=== PATIENT | female | born 1985 | race Caucasian/White ===

== ENCOUNTER 2022-05-13 16:33 | Outpatient (CLI) | payer OTHER, SELFPAY ==
[2022-05-13 18:26] LABS: Hepatitis B Surface Antigen Negative (Negative)
[2022-05-13 18:33] LABS: HIV 1/2 Ab P24 Ag Result Negative (Negative)
[2022-05-14 16:00] LABS: Rapid Plasma Reagin Non-Reactive (NonReactive)
== END 2022-05-13 16:34 | disposition home or self-care (01) ==
LOC: ANHLAB 16:40
DX: E03.8 Other specified hypothyroidism (principal)
CPT/HCPCS: 36415; 84443; 86592; 86703; 87340; 87491; 87591; G0432

== ENCOUNTER 2023-06-27 10:38 | Outpatient (CLI) | payer OTHER, SELFPAY | END 2023-06-27 10:39 | disposition home or self-care (01) | DX: E03.8 Other specified hypothyroidism (principal) | CPT/HCPCS: 36415; 84443 ==

== ENCOUNTER 2024-10-18 15:15 | Outpatient (CLI) | payer OTHER, SELFPAY ==
--- OUTSIDE RECORDS SUMMARY | 2024-10-18 15:22 | XMS_ITS | Encounter Summary ---
Author Organization [facility] Address [address] [place] [address] Care Team Providers Care Lace Machine Operator Name Role Phone Rhonda Oro MD Primary Care Provider [phone] Encounter Details Date Type Department Care Team (Late Contact Info) Description 11/09/2001 Outpatient [facility] Family Therapy [address] [place] [address] Lorenza Brody Social History Tobacco Use Types Packs/Day Years Used Date Smoking Tobacco: Never Assessed Comments Unknown Sex and Gender Information Value Date Recorded Sex Assigned at Not on file Legal Sex Female 4:40 AM RECREATION THERAPY AIDE Gender Identity Not on file Sexual Orientation Not on file documented as of this encounter Plan of Treatment Upcoming Encounters Date Type Department Care Team (Late Contact Info) Description 05/05/2025 4:20 PM RECREATION THERAPY AIDE Appointment [facility] Medicine Ronda Kieran [address] [facility] [address] [place] [address] [place] [address] [facility] [address] [place] [address] documented as of this encounter Visit Diagnoses Not on filedocumented in this encounter Additional Health Concerns Infection Onset Date Last Indicated Resolved Time R/O COVID-19 12/06/2019 12/06/2019 12/08/2019 4:01 AM CDT R/O COVID-19 05/29/2020 05/29/2020 05/30/2020 1:34 AM RECREATION THERAPY AIDE COVID-19 05/29/2020 05/29/2020 06/28/2020 1:17 AM RECREATION THERAPY AIDE documented as of this encounter Care Teams Lace Machine Operator Relationship Specialty [place] [address] [address] PCP - General Family Practice 05/07/17 documented as of this encounter
--- OUTSIDE RECORDS SUMMARY | 2024-10-18 15:22 | XMS_ITS | Encounter Summary ---
Author Organization [facility] Address [address] [place] [address] Care Team Providers Care Counter Professional Name Role Phone Rhonda Oro MD Primary Care Provider [phone] Encounter Details Date Type Department Care Team (Late st Contact Info) Description 02/27/2007 Orders Only [facility] Family Medicine [facility] [address] [facility] [address] [place] [address] Tamie Leo MD NO ADDRESS ON FILE Social History Tobacco Use Types Packs/Day Years Used Date Smoking Tobacco: Never Assessed Comments Unknown Sex and Gender Information Value Date Recorded Sex Assigned at Not on file Legal Sex Female 4:40 AM FINANCIAL SYSTEMS DIRECTOR Gender Identity Not on file Sexual Orientation Not on file documented as of this encounter Progress Notes * Tamie Leo MD - 10/16/2007 7:04 PM CDT NURSE NAME: Nadia Fernandez BLOOD PRESSURE: 102/64. Right Arm Sitting PULSE: 71. Right Radial, Regular WEIGHT: 112lbs. ALLERGIES: Allergies are as listed. TOBACCO USE: Patient does not currently use tobacco. CHIEF COMPLAINT Here for follow up evaluation. est/ sjl HISTORY: HISTORY: 078.19-WART persistent wart both thumbs and index fingers. one is medium size, others tiny, barely detectable. ready to try liq N2 300.00-ANXIETY states she is better and decided not to increase medication. getting records sent tome. using relaxation techniques 706.1-ACNE(COMEDONE) continues to flare w/ painful cystic lesions. father still on acne meds in his50's. thinks she did best on septra previously. no abx for almost 2 years. CURRENT MEDICATION LIST: CITALOPRAM HYDROBROMIDE ORAL TABLET 20 MG, 1 Every Day ORTHO TRI-CYCLEN (28) ORAL TABLET 0.035 MG, 1 Every Day CURRENT ALLERGY LIST: ERYTHROMYCIN PCN ROS: SKIN/BREAST/CHEST: See HISTORY OF PRESENT ILLNESS. : . vaginal itching & d/c like prior episode that responded to diflucan PSYCHIATRIC: See HISTORY OF PRESENT ILLNESS. PHYSICAL EXAMINATION: CONSTITUTIONAL: GENERAL APPEARANCE: Healthy appearing patient in no distress. SKIN: RASH/LESION #1 LOCATION: L thumb w/ 3-4mm wart + 1mm wart. R thumb and both index fingers w/ 1-2 mm warts BIOPSY/LESION: Liquid nitrogen cryotherapy was recommended. The procedure, including risks and potential complications, such as infection, scarring, blistering and hypopigmentation was explained. Thepatient understood and wished to proceed with treatment. The lesion was treated with liquid nitrogen resulting in freezing of the entire lesion and 1-2 mm of surrounding skin. RASH/LESION #2 LOCATION: mild inflamm. acne face. one resolving cystic lesion chin PSYCHIATRIC: Judgment appropriate. Oriented. Normal memory. Mood and affect appropriate. ASSESSMENT/PLAN: 078.19-WART ASSESSMENT: hopefully last rx LAB ORDERS: Order number: [id number] Test Ordered: DESTRUCTION BENIGN LESIONS UP TO 14 [id number] 300.00-ANXIETY ASSESSMENT: stable. ok to continue current meds. get records 706.1-ACNE(COMEDONE) ASSESSMENT: Will start medication for better control. warned re: photosensitivity and rare risk of bone marrow effects. reduce to QD if improved. MEDICATIONS: SEPTRA DS ORAL TABLET 800-160 MG, 1 Two Times A Day, 60 Dispensed, 2 Fills, status: NEW PRESCRIPTION, 02/27/2007. 616.10-VULVOVAGINITIS MEDICATIONS: DIFLUCAN ORAL TABLET 150 MG, 1 tablet now for yeast infection, 1 Dispensed, status: NEW PRESCRIPTION, 02/27/2007. RETURN VISIT: Instructed to call if not improving. Electronically Signed by: Tamie Leo MD on Tuesday, February 27, 2007 documented in this encounter Plan of Treatment Upcoming Encounters Date Type Department Care Team (Late st Contact Info) Description 05/05/2025 4:20 PM FINANCIAL SYSTEMS DIRECTOR Appointment [facility] Medicine Ronda Alcaraz [address] [facility] [address] [place] [address] [place] [address] [facility] [address] [place] [address] documented as of this encounter Visit Diagnoses Not on filedocumented in this encounter Additional Health Concerns Infection Onset Date Last Indicated Resolved Time R/O COVID-19 12/06/2019 12/06/2019 12/08/2019 4:01 AM CDT R/O COVID-19 05/29/2020 05/29/2020 05/30/2020 1:34 AM FINANCIAL SYSTEMS DIRECTOR COVID-19 05/29/2020 05/29/2020 06/28/2020 1:17 AM FINANCIAL SYSTEMS DIRECTOR documented as of this encounter Care Teams Counter Professional Relationship Specialty [place] [address] [facility] [address] [place] [address] PCP - General Family Practice 05/07/17 documented as of this encounter
--- OUTSIDE RECORDS SUMMARY | 2024-10-18 15:22 | XMS_ITS | Encounter Summary ---
Author Organization [facility] Address [address] [place] [address] Care Team Providers Care Master Ship Name Role Phone Rhonda Oro MD Primary Care Provider [phone] Encounter Details Date Type Department Care Team (Late st Contact Info) Description 10/15/2002 Outpatient Historical [facility] Medicine Ronda Kieran [address] [facility] [facility] [address] [place] [address] Tamie Leo MD NO ADDRESS ON FILE Social History Tobacco Use Types Packs/Day Years Used Date Smoking Tobacco: Never Assessed Comments Unknown Sex and Gender Information Value Date Recorded Sex Assigned at Not on file Legal Sex Female 4:40 AM IN HOME SALES CONSULTANT Gender Identity Not on file Sexual Orientation Not on file documented as of this encounter Plan of Treatment Upcoming Encounters Date Type Department Care Team (Late st Contact Info) Description 05/05/2025 4:20 PM IN HOME SALES CONSULTANT Appointment [facility] [place] Kieran [address] [address] [facility] [address] [place] [address] [place] [address] [address] [facility] [address] [place] [address] documented as of this encounter Visit Diagnoses Not on filedocumented in this encounter Additional Health Concerns Infection Onset Date Last Indicated Resolved Time R/O COVID-19 12/06/2019 12/06/2019 12/08/2019 4:01 AM CDT R/O COVID-19 05/29/2020 05/29/2020 05/30/2020 1:34 AM IN HOME SALES CONSULTANT COVID-19 05/29/2020 05/29/2020 06/28/2020 1:17 AM IN HOME SALES CONSULTANT documented as of this encounter Care Teams Master Ship Relationship Specialty [place] [address] [address] PCP - General Family Practice 05/07/17 documented as of this encounter
--- OUTSIDE RECORDS SUMMARY | 2024-10-18 15:22 | XMS_ITS | Encounter Summary ---
Author Organization [facility] Address [address] [place] [address] Care Team Providers Care Settlement Agent Name Role Phone Rhonda Oro MD Primary Care Provider [phone] Encounter Details Date Type Department Care Team (Latest Contact Info) Description 12/23/2003 Outpatient Historical [facility] Tamie Alexander MD NO ADDRESS ON FILE DIZZINESS AND GIDDINESS (Primary Dx) Social History Tobacco Use Types Packs/Day Years Used Date Smoking Tobacco: Never Assessed Comments Unknown Sex and Gender Information Value Date Recorded Sex Assigned at Not on file Legal Sex Female 4:40 AM DIGESTER OPERATOR Gender Identity Not on file Sexual Orientation Not on file documented as of this encounter Plan of Treatment Upcoming Encounters Date Type Department Care Team (Late st Contact Info) Description 05/05/2025 4:20 PM DIGESTER OPERATOR Appointment [facility] Medicine Ronda Alcaraz [address] [facility] [address] [place] [address] [place] [address] [facility] [address] [place] [address] documented as of this encounter Visit Diagnoses Diagnosis Dizziness and giddiness- Primary documented in this encounter Additional Health Concerns Infection Onset Date Last Indicated Resolved Time R/O COVID-19 12/06/2019 12/06/2019 12/08/2019 4:01 AM CDT R/O COVID-19 05/29/2020 05/29/2020 05/30/2020 1:34 AM DIGESTER OPERATOR COVID-19 05/29/2020 05/29/2020 06/28/2020 1:17 AM DIGESTER OPERATOR documented as of this encounter Care Teams Settlement Agent Relationship Specialty [place] [address] [address] PCP - General Family Practice 05/07/17 documented as of this encounter
--- OUTSIDE RECORDS SUMMARY | 2024-10-18 15:22 | XMS_ITS | Encounter Summary ---
Author Organization [facility] Address [address] [place] [address] Care Team Providers Care Hog Handler Name Role Phone Rhonda Oro MD Primary Care Provider [phone] Encounter Details Date Type Department Care Team (Late st Contact Info) Description 03/13/2004 Outpatient Historical [facility] Medicine Ronda Kieran [address] [facility] [address] [place] [address] Tamie Leo MD NO ADDRESS ON FILE Social History Tobacco Use Types Packs/Day Years Used Date Smoking Tobacco: Never Assessed Comments Unknown Sex and Gender Information Value Date Recorded Sex Assigned at Not on file Legal Sex Female 4:40 AM AUTOMOBILE DAMAGE APPRAISER Gender Identity Not on file Sexual Orientation Not on file documented as of this encounter Plan of Treatment Upcoming Encounters Date Type Department Care Team (Late st Contact Info) Description 05/05/2025 4:20 PM AUTOMOBILE DAMAGE APPRAISER Appointment [facility] [place] Kieran [address] [facility] [facility] [address] [place] [address] [place] [address] [employer] [address] [address] documented as of this encounter Visit Diagnoses Not on filedocumented in this encounter Additional Health Concerns Infection Onset Date Last Indicated Resolved Time R/O COVID-19 12/06/2019 12/06/2019 12/08/2019 4:01 AM CDT R/O COVID-19 05/29/2020 05/29/2020 05/30/2020 1:34 AM AUTOMOBILE DAMAGE APPRAISER COVID-19 05/29/2020 05/29/2020 06/28/2020 1:17 AM AUTOMOBILE DAMAGE APPRAISER documented as of this encounter Care Teams Hog Handler Relationship Specialty [place] [address] [address] PCP - General Family Practice 05/07/17 documented as of this encounter
--- OUTSIDE RECORDS SUMMARY | 2024-10-18 15:22 | XMS_ITS | Encounter Summary ---
Author Organization [facility] Address [address] [place] [address] Care Team Providers Care Administrative Tech Name Role Phone Rhonda Oro MD Primary Care Provider [phone] Encounter Details Date Type Department Care Team (Late Contact Info) Description 10/12/2002 Outpatient Historical [facility] Medicine Ronda Kieran [address] [facility] [address] [place] [address] [place] [address] [employer] [facility] [employer] [place] [address] Social History Tobacco Use Types Packs/Day Years Used Date Smoking Tobacco: Never Assessed Comments Unknown Sex and Gender Information Value Date Recorded Sex Assigned at Not on file Legal Sex Female 4:40 AM VENEER TAPING MACHINE OPERATOR Gender Identity Not on file Sexual Orientation Not on file documented as of this encounter Plan of Treatment Upcoming Encounters Date Type Department Care Team (Late Contact Info) Description 05/05/2025 4:20 PM VENEER TAPING MACHINE OPERATOR Appointment [facility] Medicine Ronda Kieran [address] [facility] [address] [place] [address] [place] [address] [employer] [address] [place] [address] documented as of this encounter Visit Diagnoses Not on filedocumented in this encounter Additional Health Concerns Infection Onset Date Last Indicated Resolved Time R/O COVID-19 12/06/2019 12/06/2019 12/08/2019 4:01 AM CDT R/O COVID-19 05/29/2020 05/29/2020 05/30/2020 1:34 AM VENEER TAPING MACHINE OPERATOR COVID-19 05/29/2020 05/29/2020 06/28/2020 1:17 AM VENEER TAPING MACHINE OPERATOR documented as of this encounter Care Teams Administrative Tech Relationship Specialty [place] [address] [phone] PCP - General Family Practice 05/07/17 documented as of this encounter
--- OUTSIDE RECORDS SUMMARY | 2024-10-18 15:22 | XMS_ITS | Encounter Summary ---
Author Organization [facility] Address [address] [place] [address] Care Team Providers Care Logging Crew Foreman Name Role Phone Rhonda Oro MD Primary Care Provider [phone] Encounter Details Date Type Department Care Team (Latest Contact Info) Description 02/01/2006 Outpatient Historical [facility] Jorge Yang MD [address] [facility] [address] [place] [address] Teetee Crowell, [address] [facility] [facility] [address] [place] [address] Delayed and Secondary Hemorrhage, (Primary Dx) Social History Tobacco Use Types Packs/Day Years Used Date Smoking Tobacco: Never Assessed Comments Unknown Sex and Gender Information Value Date Recorded Sex Assigned at Not on file Legal Sex Female 4:40 AM E M ASSEMBLER Gender Identity Not on file Sexual Orientation Not on file documented as of this encounter Plan of Treatment Upcoming Encounters Date Type Department Care Team (Late st Contact Info) Description 05/05/2025 4:20 PM E M ASSEMBLER Appointment [facility] Family Medicine Ronda Alcaraz [address] [facility] [address] [place] [address] [place] [address] [facility] [address] [place] [address] documented as of this encounter Procedures Procedure Name Priority Date/Time Associated Diagnosis Comments CBC WITH DIFFERENTIAL Routine 02/02/2006 6:05 AM CDT CBC WITH DIFFERENTIAL Routine 02/02/2006 6:05 AM CDT BASIC METABOLIC PANEL Routine 02/02/2006 6:05 AM CDT POC GLUCOSE Routine 02/01/2006 8:58 PM CDT PT AND APTT Routine 02/01/2006 6:05 PM CDT CBC WITH DIFFERENTIAL Routine 02/01/2006 6:04 PM CDT CBC WITH DIFFERENTIAL Routine 02/01/2006 6:04 PM CDT documented in this encounter Results * CBC WITH DIFFERENTIAL (02/02/2006 6:05 AM CDT) Pathologist [facility] NEUTROPHILS 49 45 - 70 % INTERFAC E SYSTEM LYMPHOCYTES 39 16 - 45 % INTERFAC E SYSTEM MONOCYTES 6 3 - 13 % INTERFACE SYSTEM EOSINOPHILS 6 0 - 7 % INTERFAC E SYSTEM BASOPHILS 0 0 - 2 % INTERFACE SYSTEM NEUTROPHIL ABSOLUTE 2.42 1.90 - 7.00 K/uL INTERFACE SYSTEM LYMPHOCYTE ABSOLUTE 1.95 0.70 - 4.50 K/uL INTERFACE SYSTEM MONOCYTE ABSOLUTE 0.30 0.10 - 1.30 K/uL INTERFACE SYSTEM EOSINOPHIL ABSOLUTE 0.30 0.00 - 0.70 K/uL INTERFACE SYSTEM BASOPHILS ABSOLUTE 0.02 0.00 - 0.20 K/uL INTERFACE SYSTEM 02/02/2006 6:05 AM CDT us Franko Cho MD HEMATOLOGY ORDERABLES Final Result INTERFACE SYSTEM Refer to clinic/hospital department * (ABNORMAL) CBC WITH DIFFERENTIAL (02/02/2006 6:05 AM CDT) Pathologist [facility] WBC 5.0 4.0 - 9.8 K/uL INTERFACE SYSTEM RBC 3.33(L) 3.90 - 4.90 M/uL INTERFACE SYSTEM HEMOGLOBIN 10.3(L) 11.8 - 14.8 g/dL INTERFACE SYSTEM HEMATOCRIT 29.7(L) 35.5 - 44.0 % INTERFACE SYSTEM MCV 89.2 82.0 - 99.0 fL INTERFACE SYSTEM MCH 30.9 27.2 - 32.6 pg INTERFACE SYSTEM MCHC 34.7 31.5 - 35.5 % INTERFACE SYSTEM RDW 12.9 11.5 - 14.5 % INTERFACE SYSTEM RDW-STDEV 41.6 37.1 - 48.7 fL INTERFACE SYSTEM PLATELETS 182 140 - 350 K/uL INTERFACE SYSTEM MPV 10.0 9.3 - 12.4 fL INTERFACE SYSTEM 02/02/2006 6:05 AM CDT Franko Cho MD HEMATOLOGY ORDERABLES Final Result Performing Organization Address [facility] Phone Number INTERFACE SYSTEM Refer to clinic/hospital department * (ABNORMAL) BASIC METABOLIC PANEL (02/02/2006 6:05 AM CDT) GLUCOSE 106(H) 65 - 99 mg/dL INTERFACE SYSTEM CREATININE 0.9 0.4 - 1.2 mg/dL INTERFACE SYSTEM CALCIUM 7.7(L) 8.6 - 10.2 mg/dL INTERFACE SYSTEM BUN 6 6 - 20 mg/dL INTERFACE SYSTEM SODIUM 141 135 - 145 mmol/L INTERFACE SYSTEM POTASSIUM 3.8 3.5 - 4.9 mmol/L INTERFACE SYSTEM CHLORIDE 112(H) 96 - 108 mmol/L INTERFACE SYSTEM CO2 23 22 - 30 mmol/L INTERFACE SYSTEM 02/02/2006 6:05 AM CDT Franko Cho MD CHEMISTRY ORDERABLES F inal Result Performing Organization Address [facility] de Phone Number INTERFACE SYSTEM Refer to clinic/hospital department * POC GLUCOSE (02/01/2006 8:58 PM CDT) GLUCOSE POC 79 65 - 109 mg/dL INTERFACE SYSTEM 02/01/2006 8:58 PM CDT Teetee Crowell DO POINT OF CARE TESTING Final Re sult Performing Organization Address [facility] de Phone Number INTERFACE SYSTEM Refer to clinic/hospital department * PT AND APTT (02/01/2006 6:05 PM CDT) Pathologist [facility] PROTIME 15.0 12.7 - 15.1 Seconds INTERFACE SYSTEM INR 1.1 0.9 - 1.1 INTERFACE SYSTEM Comment: INR Therapeutic Range: Adult: 2.0 - 3.0 for pulmonary embolism or prophylaxis against venous thrombosis or systemic embolization. 2.0 - 3.0 for patients with tissue heart valves. 2.5 - 3.5 for patients with mechanical heart valves or post ID. Pediatric (12 years and under): 1.5 - 3.0 Although the target range in children is not well established , INR values of 1.5 - 3.0 are recommended for most patients. Higher values have been used in children with prosthetic cardiac valves and hereditary clotting disorders. (<3 days) therapeutic ranges have not been established. PTT 30.9 24.4 - 36.4 Seconds INTERFACE SYSTEM Comment: PTT Therapeutic Range: Heparin Level PTT (seconds) <0.10 units/mL <53 0.10 - 0.30 units/mL 53 - 67 0.30 - 0.70 units/mL* 67 - 95* 0.70 - 1.00 units/mL 95 - 116 *corresponds to therapeutic range for unfractionated heparin 02/01/2006 6:05 PM CDT us Franko Cho MD HEMATOLOGY ORDERABLES Final Result INTERFACE SYSTEM Refer to clinic/hospital department * (ABNORMAL) CBC WITH DIFFERENTIAL (02/01/2006 6:04 PM CDT) Pathologist [facility] NEUTROPHILS 43(L) 45 - 70 % INTERFAC E SYSTEM LYMPHOCYTES 43 16 - 45 % INTERFAC E SYSTEM MONOCYTES 6 3 - 13 % INTERFACE SYSTEM EOSINOPHILS 8(H) 0 - 7 % INTERFAC E SYSTEM BASOPHILS 1 0 - 2 % INTERFACE SYSTEM NEUTROPHIL ABSOLUTE 2.37 1.90 - 7.00 K/uL INTERFACE SYSTEM LYMPHOCYTE ABSOLUTE 2.36 0.70 - 4.50 K/uL INTERFACE SYSTEM MONOCYTE ABSOLUTE 0.34 0.10 - 1.30 K/uL INTERFACE SYSTEM EOSINOPHIL ABSOLUTE 0.43 0.00 - 0.70 K/uL INTERFACE SYSTEM BASOPHILS ABSOLUTE 0.03 0.00 - 0.20 K/uL INTERFACE SYSTEM 02/01/2006 6:04 PM CDT Franko Cho MD HEMATOLOGY ORDERABLES Final Result Performing Organization Address [facility] Phone Number INTERFACE SYSTEM Refer to clinic/hospital department * CBC WITH DIFFERENTIAL (02/01/2006 6:04 PM CDT) WBC 5.5 4.0 - 9.8 K/uL INTERFACE SYSTEM RBC 4.41 3.90 - 4.90 M/uL INTERFACE SYSTEM HEMOGLOBIN 13.3 11.8 - 14.8 g/dL INTERFACE SYSTEM HEMATOCRIT 39.4 35.5 - 44.0 % INTERFACE SYSTEM MCV 89.3 82.0 - 99.0 fL INTERFACE SYSTEM MCH 30.2 27.2 - 32.6 pg INTERFACE SYSTEM MCHC 33.8 31.5 - 35.5 % INTERFACE SYSTEM RDW 12.8 11.5 - 14.5 % INTERFACE SYSTEM RDW-STDEV 41.9 37.1 - 48.7 fL INTERFACE SYSTEM PLATELETS 220 140 - 350 K/uL INTERFACE SYSTEM MPV 10.0 9.3 - 12.4 fL INTERFACE SYSTEM 02/01/2006 6:04 PM CDT Franko Cho MD HEMATOLOGY ORDERABLES Final Result Performing Organization Address [facility] Phone Number INTERFACE SYSTEM Refer to clinic/hospital department documented in this encounter Visit Diagnoses Diagnosis Delayed and secondary hemorrhage, - Primary documented in this encounter Additional Health Concerns Infection Onset Date Last Indicated Resolved Time R/O COVID-19 12/06/2019 12/06/2019 12/08/2019 4:01 AM CDT R/O COVID-19 05/29/2020 05/29/2020 05/30/2020 1:34 AM E M ASSEMBLER COVID-19 05/29/2020 05/29/2020 06/28/2020 1:17 AM E M ASSEMBLER documented as of this encounter Care Teams Logging Crew Foreman Relationship Specialty [place] [address] [facility] [address] [place] [address] PCP - General Family Practice 05/07/17 documented as of this encounter
--- OUTSIDE RECORDS SUMMARY | 2024-10-18 15:22 | XMS_ITS | Encounter Summary ---
Author Organization [facility] Address [address] [place] [address] Care Team Providers Care Forensic Accountant Name Role Phone Rhonda Oro MD Primary Care Provider [phone] Encounter Details Date Type Department Care Team (Late st Contact Info) Description 12/22/[address] [facility] Medicine Ronda Kieran [address] [address] [facility] [address] [place] [address] Tamie Leo MD NO ADDRESS ON FILE Social History Tobacco Use Types Packs/Day Years Used Date Smoking Tobacco: Never Assessed Comments Unknown Sex and Gender Information Value Date Recorded Sex Assigned at Not on file Legal Sex Female 4:40 AM SUPERVISOR BOAT OUTFITTING Gender Identity Not on file Sexual Orientation Not on file documented as of this encounter Plan of Treatment Upcoming Encounters Date Type Department Care Team (Late st Contact Info) Description 05/05/2025 4:20 PM SUPERVISOR BOAT OUTFITTING Appointment [facility] [place] Kieran [address] [address] [facility] [address] [place] [address] [place] [address] [address] [facility] [address] [place] [address] documented as of this encounter Visit Diagnoses Not on filedocumented in this encounter Additional Health Concerns Infection Onset Date Last Indicated Resolved Time R/O COVID-19 12/06/2019 12/06/2019 12/08/2019 4:01 AM CDT R/O COVID-19 05/29/2020 05/29/2020 05/30/2020 1:34 AM SUPERVISOR BOAT OUTFITTING COVID-19 05/29/2020 05/29/2020 06/28/2020 1:17 AM SUPERVISOR BOAT OUTFITTING documented as of this encounter Care Teams Forensic Accountant Relationship Specialty [place] [address] [address] PCP - General Family Practice 05/07/17 documented as of this encounter
--- OUTSIDE RECORDS SUMMARY | 2024-10-18 15:22 | XMS_ITS | Continuity of Care Document ---
Author Organization [facility] Address [address] [place] [address] Phone Care Team Providers Care Mds Coordinator Name Role Phone Angie Lisa MD Unavailable Unavailable Advance Directives Directive Yes / No Effective Date File Name No Information Encounters Encounter Description Practice Location Reason(s) For Visit Diagnoses Date Provider Providers Copied on Encounter [facility], [address], [place], [place], [id number], tel:[phone] [facility] No Information Maria L Adams. [address] , [address] [place] [address], [id number], [place]. tel:[phone] [facility], [address], [place], [place], [address], tel:[phone] [facility] ACUTE BRONCHITIS Maria L Adams. [address], [address], [place], [id number], [place]. tel:[phone] Family History Family Member Type Diagnosis Age At Onset No Information Payers Payer name Insurance type Covered republican ID Authoriza tion(s) No Information Social History Type Description Quantity Date Captured Comments Sex Female Smoking Status No Information Chief Complaint And Reason For Visit No Information Reason For Referral Reason For Referral No Information History Of Present Illness Encounter Date Complaint History Of Prese nt Illness No Information Functional Status Date Functional Assessmen t No Information Instructions Date Instruction Additional Infor mation No Information Assessments Type Assessment Date No Information Patient Care Teams Name Effective Dates (start - stop) Status Members No Information
--- OUTSIDE RECORDS SUMMARY | 2024-10-18 15:22 | XMS_ITS | Encounter Summary ---
Author Organization [facility] Address [address] [place] [address] Care Team Providers Care Industrial Hygienist Name Role Phone Rhonda Oro MD Primary Care Provider [phone] Encounter Details Date Type Department Care Team (Late st Contact Info) Description 01/23/2004 Outpatient Historical [facility] Ronda Kieran [address] [facility] [address] [place] [address] Tamie Leo MD NO ADDRESS ON FILE Social History Tobacco Use Types Packs/Day Years Used Date Smoking Tobacco: Never Assessed Comments Unknown Sex and Gender Information Value Date Recorded Sex Assigned at Not on file Legal Sex Female 4:40 AM NIKE ATHLETE Gender Identity Not on file Sexual Orientation Not on file documented as of this encounter Plan of Treatment Upcoming Encounters Date Type Department Care Team (Late st Contact Info) Description 05/05/2025 4:20 PM NIKE ATHLETE Appointment [facility] [place] Kieran [address] [facility] [address] [place] [address] [place] [address] [address] [facility] [address] [place] [address] documented as of this encounter Visit Diagnoses Not on filedocumented in this encounter Additional Health Concerns Infection Onset Date Last Indicated Resolved Time R/O COVID-19 12/06/2019 12/06/2019 12/08/2019 4:01 AM CDT R/O COVID-19 05/29/2020 05/29/2020 05/30/2020 1:34 AM NIKE ATHLETE COVID-19 05/29/2020 05/29/2020 06/28/2020 1:17 AM NIKE ATHLETE documented as of this encounter Care Teams Industrial Hygienist Relationship Specialty [place] [address] [address] PCP - General Family Practice 05/07/17 documented as of this encounter
--- OUTSIDE RECORDS SUMMARY | 2024-10-18 15:22 | XMS_ITS | Encounter Summary ---
Author Organization [facility] Address [address] [place] [address] Care Team Providers Care Driver Name Role Phone Rhonda Oro MD Primary Care Provider [phone] Encounter Details Date Type Department Care Team (Latest Contact Info) Description 11/04/2005 Outpatient Historical [facility] IN [facility]ED Jorge Yang MD [address] [facility] [address] [place] [address] Teetee Crowell, [address] [facility] [address] [place] [address] Threatened Premature Labor, Antepartum (Primary Dx) Social History Tobacco Use Types Packs/Day Years Used Date Smoking Tobacco: Never Assessed Comments Unknown Sex and Gender Information Value Date Recorded Sex Assigned at Not on file Legal Sex Female 4:40 AM TEAM GUIDE Gender Identity Not on file Sexual Orientation Not on file documented as of this encounter Plan of Treatment Upcoming Encounters Date Type Department Care Team (Late st Contact Info) Description 05/05/2025 4:20 PM TEAM GUIDE Appointment [facility] Medicine Ronda Alcaraz [address] [facility] [address] [place] [address] [place] [address] [address] documented as of this encounter Visit Diagnoses Diagnosis Threatened premature labor, antepartum(644.03)- Primary Threatened premature labor, antepartum documented in this encounter Additional Health Concerns Infection Onset Date Last Indicated Resolved Time R/O COVID-19 12/06/2019 12/06/2019 12/08/2019 4:01 AM CDT R/O COVID-19 05/29/2020 05/29/2020 05/30/2020 1:34 AM TEAM GUIDE COVID-19 05/29/2020 05/29/2020 06/28/2020 1:17 AM TEAM GUIDE documented as of this encounter Care Teams Driver Relationship Specialty [place] [address] [address] PCP - General Family Practice 05/07/17 documented as of this encounter
--- OUTSIDE RECORDS SUMMARY | 2024-10-18 15:22 | XMS_ITS | Encounter Summary ---
Author Organization [facility] Address [address] [place] [address] Care Team Providers Care Link Trainer Operator Name Role Phone Rhonda Oro MD Primary Care Provider [phone] Encounter Details Date Type Department Care Team (Late st Contact Info) Description 02/27/[address] [facility] Ronda Kieran [address] [facility] 300 [place] [address] Tamie Leo MD NO ADDRESS ON FILE Social History Tobacco Use Types Packs/Day Years Used Date Smoking Tobacco: Never Assessed Comments Unknown Sex and Gender Information Value Date Recorded Sex Assigned at Not on file Legal Sex Female 4:40 AM VP ANCILLARY Gender Identity Not on file Sexual Orientation Not on file documented as of this encounter Plan of Treatment Upcoming Encounters Date Type Department Care Team (Late st Contact Info) Description 05/05/2025 4:20 PM VP ANCILLARY Appointment [facility] [place] Kieran [address] [facility] [address] [place] [address] [place] [address] [address] [facility] 300 [place] [address] documented as of this encounter Visit Diagnoses Not on filedocumented in this encounter Additional Health Concerns Infection Onset Date Last Indicated Resolved Time R/O COVID-19 12/06/2019 12/06/2019 12/08/2019 4:01 AM CDT R/O COVID-19 05/29/2020 05/29/2020 05/30/2020 1:34 AM VP ANCILLARY COVID-19 05/29/2020 05/29/2020 06/28/2020 1:17 AM VP ANCILLARY documented as of this encounter Care Teams Link Trainer Operator Relationship Specialty [place] [address] [address] PCP - General Family Practice 05/07/17 documented as of this encounter
--- OUTSIDE RECORDS SUMMARY | 2024-10-18 15:22 | XMS_ITS | Encounter Summary ---
Author Organization [facility] Address [address] [place] [address] Care Team Providers Care Trace Evidence Technician Name Role Phone Rhonda Oro MD Primary Care Provider [phone] Encounter Details Date Type Department Care Team (Late Contact Info) Description 09/03/2005 Outpatient Historical [facility] Kieran [address] [place] [address] [place] [address] [address] [place] [address] Social History Tobacco Use Types Packs/Day Years Used Date Smoking Tobacco: Never Assessed Comments Unknown Sex and Gender Information Value Date Recorded Sex Assigned at Not on file Legal Sex Female 4:40 AM OPERATIONS LIAISON Gender Identity Not on file Sexual Orientation Not on file documented as of this encounter Last Filed Vital Signs Vital Sign Reading Time Taken Comments Blood Pressure 98/56 09/03/2005 10:30 AM CDT Pulse - - Temperature - - Respiratory Rate - - Oxygen Saturation - - Inhaled Oxygen Concentration - - Weight 59 kg (130 lb) 09/03/2005 10:30 AM CDT Height - - Body Mass Index - - documented in this encounter Plan of Treatment Upcoming Encounters Date Type Department Care Team (Late Contact Info) Description 05/05/2025 4:20 PM OPERATIONS LIAISON Appointment [facility] Medicine [place] Kieran [address] [place] [address] [place] [address] [address] documented as of this encounter Visit Diagnoses Not on filedocumented in this encounter Additional Health Concerns Infection Onset Date Last Indicated Resolved Time R/O COVID-19 12/06/2019 12/06/2019 12/08/2019 4:01 AM CDT R/O COVID-19 05/29/2020 05/29/2020 05/30/2020 1:34 AM OPERATIONS LIAISON COVID-19 05/29/2020 05/29/2020 06/28/2020 1:17 AM OPERATIONS LIAISON documented as of this encounter Care Teams Trace Evidence Technician Relationship Specialty [place] [address] [address] PCP - General Family Practice 05/07/17 documented as of this encounter
--- OUTSIDE RECORDS SUMMARY | 2024-10-18 15:22 | XMS_ITS | Encounter Summary ---
Author Organization [facility] Address [address] [place] [address] Care Team Providers Care Command And Control Specialist Name Role Phone Rhonda Oro MD Primary Care Provider [phone] Encounter Details Date Type Department Care Team (Late st Contact Info) Description 02/27/[address] [facility] Ronda Kieran [address] [email or web address] [facility] [address] [place] [address] Tamie Leo MD NO ADDRESS ON FILE Social History Tobacco Use Types Packs/Day Years Used Date Smoking Tobacco: Never Assessed Comments Unknown Sex and Gender Information Value Date Recorded Sex Assigned at Not on file Legal Sex Female 4:40 AM PERSONAL HEALTH COACH Gender Identity Not on file Sexual Orientation Not on file documented as of this encounter Plan of Treatment Upcoming Encounters Date Type Department Care Team (Late st Contact Info) Description 05/05/2025 4:20 PM PERSONAL HEALTH COACH Appointment [facility] [place] Kieran [address] [email or web address] [facility] [address] [place] [address] [place] [address] [email or web address] [facility] 300 [place] [address] documented as of this encounter Visit Diagnoses Not on filedocumented in this encounter Additional Health Concerns Infection Onset Date Last Indicated Resolved Time R/O COVID-19 12/06/2019 12/06/2019 12/08/2019 4:01 AM CDT R/O COVID-19 05/29/2020 05/29/2020 05/30/2020 1:34 AM PERSONAL HEALTH COACH COVID-19 05/29/2020 05/29/2020 06/28/2020 1:17 AM PERSONAL HEALTH COACH documented as of this encounter Care Teams Command And Control Specialist Relationship Specialty [place] [address] [address] PCP - General Family Practice 05/07/17 documented as of this encounter
--- OUTSIDE RECORDS SUMMARY | 2024-10-18 15:22 | XMS_ITS | Encounter Summary ---
Author Organization [facility] Address [address] [place] [address] Care Team Providers Care Peat Shredder Tender Name Role Phone Rhonda Oro MD Primary Care Provider [phone] Encounter Details Date Type Department Care Team (Late st Contact Info) Description 12/22/2006 Outpatient Historical [facility] Medicine Ronda Kieran [address] [address] [facility] [address] [place] [address] Tamie Leo MD NO ADDRESS ON FILE Social History Tobacco Use Types Packs/Day Years Used Date Smoking Tobacco: Never Assessed Comments Unknown Sex and Gender Information Value Date Recorded Sex Assigned at Not on file Legal Sex Female 4:40 AM ADMINISTRATIVE PERSONAL ASSISTANT Gender Identity Not on file Sexual Orientation Not on file documented as of this encounter Plan of Treatment Upcoming Encounters Date Type Department Care Team (Late st Contact Info) Description 05/05/2025 4:20 PM ADMINISTRATIVE PERSONAL ASSISTANT Appointment [facility] [place] Kieran [address] [address] [facility] [address] [place] [address] [place] [address] [address] [facility] 300 [place] [address] documented as of this encounter Visit Diagnoses Not on filedocumented in this encounter Additional Health Concerns Infection Onset Date Last Indicated Resolved Time R/O COVID-19 12/06/2019 12/06/2019 12/08/2019 4:01 AM CDT R/O COVID-19 05/29/2020 05/29/2020 05/30/2020 1:34 AM ADMINISTRATIVE PERSONAL ASSISTANT COVID-19 05/29/2020 05/29/2020 06/28/2020 1:17 AM ADMINISTRATIVE PERSONAL ASSISTANT documented as of this encounter Care Teams Peat Shredder Tender Relationship Specialty [place] [address] [address] PCP - General Family Practice 05/07/17 documented as of this encounter
--- OUTSIDE RECORDS SUMMARY | 2024-10-18 15:22 | XMS_ITS | Encounter Summary ---
Author Organization [facility] Address [address] [place] [address] Care Team Providers Care Apartment Rental Clerk Name Role Phone Rhonda Oro MD Primary Care Provider [phone] Encounter Details Date Type Department Care Team (Late st Contact Info) Description 02/06/2007 Outpatient Historical [facility] Medicine Ronda Kieran [address] [address] [facility] [address] [place] [address] Tamie Leo MD NO ADDRESS ON FILE Social History Tobacco Use Types Packs/Day Years Used Date Smoking Tobacco: Never Assessed Comments Unknown Sex and Gender Information Value Date Recorded Sex Assigned at Not on file Legal Sex Female 4:40 AM SHEETER HELPER Gender Identity Not on file Sexual Orientation Not on file documented as of this encounter Plan of Treatment Upcoming Encounters Date Type Department Care Team (Late st Contact Info) Description 05/05/2025 4:20 PM SHEETER HELPER Appointment [facility] [place] Kieran [address] [facility] [facility] [address] [place] [address] [place] [address] [address] [facility] 300 [place] [address] documented as of this encounter Visit Diagnoses Not on filedocumented in this encounter Additional Health Concerns Infection Onset Date Last Indicated Resolved Time R/O COVID-19 12/06/2019 12/06/2019 12/08/2019 4:01 AM CDT R/O COVID-19 05/29/2020 05/29/2020 05/30/2020 1:34 AM SHEETER HELPER COVID-19 05/29/2020 05/29/2020 06/28/2020 1:17 AM SHEETER HELPER documented as of this encounter Care Teams Apartment Rental Clerk Relationship Specialty [place] [address] [address] PCP - General Family Practice 05/07/17 documented as of this encounter
--- OUTSIDE RECORDS SUMMARY | 2024-10-18 15:22 | XMS_ITS | Encounter Summary ---
Author Organization [facility] Address [address] [place] [address] Care Team Providers Care Guide Name Role Phone Rhonda Oro MD Primary Care Provider [phone] Encounter Details Date Type Department Care Team (Late st Contact Info) Description 05/24/2002 Outpatient Historical [facility] Medicine Ronda Kieran [address] [employer] [facility] [address] [place] [address] Tamie Leo MD NO ADDRESS ON FILE Social History Tobacco Use Types Packs/Day Years Used Date Smoking Tobacco: Never Assessed Comments Unknown Sex and Gender Information Value Date Recorded Sex Assigned at Not on file Legal Sex Female 4:40 AM SOLUTIONS ENGINEER Gender Identity Not on file Sexual Orientation Not on file documented as of this encounter Plan of Treatment Upcoming Encounters Date Type Department Care Team (Late st Contact Info) Description 05/05/2025 4:20 PM SOLUTIONS ENGINEER Appointment [facility] [place] Kieran [address] [employer] [facility] [address] [place] [address] [place] [address] [employer] [facility] 300 [place] [address] documented as of this encounter Visit Diagnoses Not on filedocumented in this encounter Additional Health Concerns Infection Onset Date Last Indicated Resolved Time R/O COVID-19 12/06/2019 12/06/2019 12/08/2019 4:01 AM CDT R/O COVID-19 05/29/2020 05/29/2020 05/30/2020 1:34 AM SOLUTIONS ENGINEER COVID-19 05/29/2020 05/29/2020 06/28/2020 1:17 AM SOLUTIONS ENGINEER documented as of this encounter Care Teams Guide Relationship Specialty [place] [address] [address] PCP - General Family Practice 05/07/17 documented as of this encounter
--- OUTSIDE RECORDS SUMMARY | 2024-10-18 15:22 | XMS_ITS | Encounter Summary ---
Author Organization [facility] Address [address] [place] [address] Care Team Providers Care Kiln Door Builder Name Role Phone Rhonda Oro MD Primary Care Provider [phone] Encounter Details Date Type Department Care Team (Late Contact Info) Description 05/11/2003 Outpatient Historical [facility] Medicine Ronda Kieran [address] [place] [address] [place] [address] [address] [place] [address] Social History Tobacco Use Types Packs/Day Years Used Date Smoking Tobacco: Never Assessed Comments Unknown Sex and Gender Information Value Date Recorded Sex Assigned at Not on file Legal Sex Female 4:40 AM CAR PACKER Gender Identity Not on file Sexual Orientation Not on file documented as of this encounter Plan of Treatment Upcoming Encounters Date Type Department Care Team (Late Contact Info) Description 05/05/2025 4:20 PM CAR PACKER Appointment [facility] Medicine [place] Kieran [address] [place] [address] [place] [address] [address] documented as of this encounter Visit Diagnoses Not on filedocumented in this encounter Additional Health Concerns Infection Onset Date Last Indicated Resolved Time R/O COVID-19 12/06/2019 12/06/2019 12/08/2019 4:01 AM CDT R/O COVID-19 05/29/2020 05/29/2020 05/30/2020 1:34 AM CAR PACKER COVID-19 05/29/2020 05/29/2020 06/28/2020 1:17 AM CAR PACKER documented as of this encounter Care Teams Kiln Door Builder Relationship Specialty [place] [address] [address] PCP - General Family Practice 05/07/17 documented as of this encounter
--- OUTSIDE RECORDS SUMMARY | 2024-10-18 15:22 | XMS_ITS | Encounter Summary ---
Author Organization [facility] Address [address] [place] [address] Care Team Providers Care Soft Shoe Dancer Name Role Phone Rhonda Oro MD Primary Care Provider [phone] Encounter Details Date Type Department Care Team (Late st Contact Info) Description 01/23/2004 Outpatient Historical [facility] Ronda Kieran [address] [facility] [address] [place] [address] Tamie Leo MD NO ADDRESS ON FILE Social History Tobacco Use Types Packs/Day Years Used Date Smoking Tobacco: Never Assessed Comments Unknown Sex and Gender Information Value Date Recorded Sex Assigned at Not on file Legal Sex Female 4:40 AM ELECTRONIC EQUIPMENT MAINT TECH Gender Identity Not on file Sexual Orientation Not on file documented as of this encounter Plan of Treatment Upcoming Encounters Date Type Department Care Team (Late st Contact Info) Description 05/05/2025 4:20 PM ELECTRONIC EQUIPMENT MAINT TECH Appointment [facility] [place] Kieran [address] [facility] [address] [place] [address] [place] [address] [address] [facility] 300 [place] [address] documented as of this encounter Visit Diagnoses Not on filedocumented in this encounter Additional Health Concerns Infection Onset Date Last Indicated Resolved Time R/O COVID-19 12/06/2019 12/06/2019 12/08/2019 4:01 AM CDT R/O COVID-19 05/29/2020 05/29/2020 05/30/2020 1:34 AM ELECTRONIC EQUIPMENT MAINT TECH COVID-19 05/29/2020 05/29/2020 06/28/2020 1:17 AM ELECTRONIC EQUIPMENT MAINT TECH documented as of this encounter Care Teams Soft Shoe Dancer Relationship Specialty [place] [address] [place] [address] [address] PCP - General Family Practice 05/07/17 documented as of this encounter
--- OUTSIDE RECORDS SUMMARY | 2024-10-18 15:22 | XMS_ITS | Encounter Summary ---
Author Organization [facility] Address [address] [place] [address] Care Team Providers Care Joint Yarner Name Role Phone Rhonda Oro MD Primary Care Provider [phone] Encounter Details Date Type Department Care Team (Late st Contact Info) Description 12/16/2003 Outpatient Historical [facility] Ronda Kieran [address] [employer] [facility] [address] [place] [address] Tamie Leo MD NO ADDRESS ON FILE Social History Tobacco Use Types Packs/Day Years Used Date Smoking Tobacco: Never Assessed Comments Unknown Sex and Gender Information Value Date Recorded Sex Assigned at Not on file Legal Sex Female 4:40 AM SENIOR MARKET INTELLIGENCE CONSULTANT Gender Identity Not on file Sexual Orientation Not on file documented as of this encounter Plan of Treatment Upcoming Encounters Date Type Department Care Team (Late st Contact Info) Description 05/05/2025 4:20 PM SENIOR MARKET INTELLIGENCE CONSULTANT Appointment [facility] [place] Kieran [address] [employer] [facility] [address] [place] [address] [place] [address] [employer] [facility] 300 [place] [address] documented as of this encounter Visit Diagnoses Not on filedocumented in this encounter Additional Health Concerns Infection Onset Date Last Indicated Resolved Time R/O COVID-19 12/06/2019 12/06/2019 12/08/2019 4:01 AM CDT R/O COVID-19 05/29/2020 05/29/2020 05/30/2020 1:34 AM SENIOR MARKET INTELLIGENCE CONSULTANT COVID-19 05/29/2020 05/29/2020 06/28/2020 1:17 AM SENIOR MARKET INTELLIGENCE CONSULTANT documented as of this encounter Care Teams Joint Yarner Relationship Specialty [place] [address] [address] PCP - General Family Practice 05/07/17 documented as of this encounter
--- OUTSIDE RECORDS SUMMARY | 2024-10-18 15:22 | XMS_ITS | Encounter Summary ---
Author Organization [facility] Address [address] [place] [address] Care Team Providers Care Implementation Director Name Role Phone Rhonda Oro MD Primary Care Provider [phone] Encounter Details Date Type Department Care Team (Late Contact Info) Description 05/30/2008 Outpatient Historical [facility] Tanya Rodríguez MD [address] [facility] [address] [place] [address] Social History Tobacco Use Types Packs/Day Years Used Date Smoking Tobacco: Never Alcohol Use Standard Drinks/Week Comments No 0 (1 standard drink = 0.6 oz pur e alcohol) Comments No Sex and Gender Information Value Date Recorded Sex Assigned at Not on file Legal Sex Female 4:40 AM RN DOCUMENT IMPROVEMENT SPECIALIST Gender Identity Not on file Sexual Orientation Not on file documented as of this encounter Plan of Treatment Upcoming Encounters Date Type Department Care Team (Late Contact Info) Description 05/05/2025 4:20 PM RN DOCUMENT IMPROVEMENT SPECIALIST Appointment [facility] Family Medicine Ronda Alcaraz [address] [facility] [address] [place] [address] [place] [address] [facility] 300 [place] [address] documented as of this encounter Visit Diagnoses Not on filedocumented in this encounter Additional Health Concerns Infection Onset Date Last Indicated Resolved Time R/O COVID-19 12/06/2019 12/06/2019 12/08/2019 4:01 AM CDT R/O COVID-19 05/29/2020 05/29/2020 05/30/2020 1:34 AM RN DOCUMENT IMPROVEMENT SPECIALIST COVID-19 05/29/2020 05/29/2020 06/28/2020 1:17 AM RN DOCUMENT IMPROVEMENT SPECIALIST documented as of this encounter Care Teams Implementation Director Relationship Specialty [place] [address] [address] PCP - General Family Practice 05/07/17 documented as of this encounter
--- OUTSIDE RECORDS SUMMARY | 2024-10-18 15:22 | XMS_ITS | Encounter Summary ---
Author Organization [facility] Address [address] [place] [address] Care Team Providers Care Emergency Room Technician Name Role Phone Rhonda Oro MD Primary Care Provider [phone] Encounter Details Date Type Department Care Team (Late st Contact Info) Description 12/22/[address] [facility] DEPT OF FAMILY MEDICINE Tamie Leo MD NO ADDRESS ON FILE Social History Tobacco Use Types Packs/Day Years Used Date Smoking Tobacco: Never Assessed Comments Unknown Sex and Gender Information Value Date Recorded Sex Assigned at Not on file Legal Sex Female 4:40 AM BARBER SHOP OPERATOR Gender Identity Not on file Sexual Orientation Not on file documented as of this encounter Plan of Treatment Upcoming Encounters Date Type Department Care Team (Late st Contact Info) Description 05/05/2025 4:20 PM BARBER SHOP OPERATOR Appointment [facility] Ronda Alcaraz [address] [address] [place] [address] [facility] [address] [place] [address] documented as of this encounter Visit Diagnoses Not on filedocumented in this encounter Additional Health Concerns Infection Onset Date Last Indicated Resolved Time R/O COVID-19 12/06/2019 12/06/2019 12/08/2019 4:01 AM CDT R/O COVID-19 05/29/2020 05/29/2020 05/30/2020 1:3 4 AM BARBER SHOP OPERATOR COVID-19 05/29/2020 05/29/2020 06/28/2020 1:17 AM BARBER SHOP OPERATOR documented as of this encounter Care Teams Emergency Room Technician Relationship Specialty [place] [address] [address] PCP - General Family Practice 05/07/17 documented as of this encounter
--- OUTSIDE RECORDS SUMMARY | 2024-10-18 15:22 | XMS_ITS | Encounter Summary ---
Author Organization [facility] Address [address] [place] [address] Care Team Providers Care Forest Worker Name Role Phone Rhonda Oro MD Primary Care Provider [phone] Encounter Details Date Type Department Care Team (Late st Contact Info) Description 06/09/2006 Outpatient Historical HIS EM[facility] Franko Cho MD NO ADDRESS ON FILE Er, Authorized P NO ADDRESS ON FILE Cellulitis and Abscess of Leg, except Foot (Primary Dx) Social History Tobacco Use Types Packs/Day Years Used Date Smoking Tobacco: Never Assessed Comments Unknown Sex and Gender Information Value Date Recorded Sex Assigned at Not on file Legal Sex Female 4:40 AM LACE PINNER Gender Identity Not on file Sexual Orientation Not on file documented as of this encounter Plan of Treatment Upcoming Encounters Date Type Department Care Team (Late st Contact Info) Description 05/05/2025 4:20 PM LACE PINNER Appointment [facility] Family Medicine Ronda Kieran [address] [facility] [address] [place] [address] [place] [address] [facility] [address] [place] [address] documented as of this encounter Visit Diagnoses Diagnosis Cellulitis and abscess of leg, except foot- Primary documented in this encounter Additional Health Concerns Infection Onset Date Last Indicated Resolved Time R/O COVID-19 12/06/2019 12/06/2019 12/08/2019 4:01 AM CDT R/O COVID-19 05/29/2020 05/29/2020 05/30/2020 1:34 AM LACE PINNER COVID-19 05/29/2020 05/29/2020 06/28/2020 1:17 AM LACE PINNER documented as of this encounter Care Teams Forest Worker Relationship Specialty [place] [address] [address] PCP - General Family Practice 05/07/17 documented as of this encounter
--- OUTSIDE RECORDS SUMMARY | 2024-10-18 15:22 | XMS_ITS | Encounter Summary ---
Author Organization [facility] Address [address] [place] [address] Care Team Providers Care Affiliate Marketing Specialist Name Role Phone Rhonda Oro MD Primary Care Provider [phone] Encounter Details Date Type Department Care Team (Late Contact Info) Description 11/13/2001 Outpatient Historical [facility] [address] [place] [address] Rajeev Nicolas, [facility] NO ADDRESS ON FILE Social History Tobacco Use Types Packs/Day Years Used Date Smoking Tobacco: Never Assessed Comments Unknown Sex and Gender Information Value Date Recorded Sex Assigned at Not on file Legal Sex Female 4:40 AM BEVERAGE INSPECTION MACHINE TENDER Gender Identity Not on file Sexual Orientation Not on file documented as of this encounter Plan of Treatment Upcoming Encounters Date Type Department Care Team (Late Contact Info) Description 05/05/2025 4:20 PM BEVERAGE INSPECTION MACHINE TENDER Appointment [facility] Family Medicine Ronda Alcaraz [address] [facility] [address] [place] [address] [place] [address] [facility] [place] [facility] [address] [place] [address] documented as of this encounter Visit Diagnoses Not on filedocumented in this encounter Additional Health Concerns Infection Onset Date Last Indicated Resolved Time R/O COVID-19 12/06/2019 12/06/2019 12/08/2019 4:01 AM CDT R/O COVID-19 05/29/2020 05/29/2020 05/30/2020 1:34 AM BEVERAGE INSPECTION MACHINE TENDER COVID-19 05/29/2020 05/29/202006/2806/28/2020 1:17 AM BEVERAGE INSPECTION MACHINE TENDER documented as of this encounter Care Teams Affiliate Marketing Specialist Relationship Specialty [place] [address] [phone] PCP - General Family Practice 05/07/17 documented as of this encounter
--- OUTSIDE RECORDS SUMMARY | 2024-10-18 15:22 | XMS_ITS | Encounter Summary ---
Author Organization [facility] Address [address] [place] [address] Care Team Providers Care Short Order Fry Cook Name Role Phone Rhonda Oro MD Primary Care Provider [phone] Encounter Details Date Type Department Care Team (Late st Contact Info) Description 12/22/2001 Outpatient Historical HIS [facility] DEPT OF FAMILY MEDICINE Tamie Leo MD NO ADDRESS ON FILE Social History Tobacco Use Types Packs/Day Years Used Date Smoking Tobacco: Never Assessed Comments Unknown Sex and Gender Information Value Date Recorded Sex Assigned at Not on file Legal Sex Female 4:40 AM BOX PERSON Gender Identity Not on file Sexual Orientation Not on file documented as of this encounter Plan of Treatment Upcoming Encounters Date Type Department Care Team (Late st Contact Info) Description 05/05/2025 4:20 PM BOX PERSON Appointment [facility] Family Medicine Ronda Alcaraz [address] [address] [place] [address] [facility] [address] [place] [address] documented as of this encounter Visit Diagnoses Not on filedocumented in this encounter Additional Health Concerns Infection Onset Date Last Indicated Resolved Time R/O COVID-19 12/06/2019 12/06/2019 12/08/2019 4:01 AM CDT R/O COVID-19 05/29/2020 05/29/2020 05/30/2020 1:3 4 AM BOX PERSON COVID-19 05/29/2020 05/29/2020 06/28/2020 1:17 AM BOX PERSON documented as of this encounter Care Teams Short Order Fry Cook Relationship Specialty [place] [address] [address] PCP - General Family Practice 05/07/17 documented as of this encounter
--- OUTSIDE RECORDS SUMMARY | 2024-10-18 15:22 | XMS_ITS | Encounter Summary ---
Author Organization [facility] Address [address] [place] [address] Care Team Providers Care Retail Inventory Control Clerk Name Role Phone Rhonda Oro MD Primary Care Provider [phone] Encounter Details Date Type Department Care Team (Late st Contact Info) Description 10/29/2001 Outpatient Historical HIS [facility] DEPT OF FAMILY MEDICINE Tamie Leo MD NO ADDRESS ON FILE Social History Tobacco Use Types Packs/Day Years Used Date Smoking Tobacco: Never Assessed Comments Unknown Sex and Gender Information Value Date Recorded Sex Assigned at Not on file Legal Sex Female 4:40 AM ALPINE GUIDE Gender Identity Not on file Sexual Orientation Not on file documented as of this encounter Plan of Treatment Upcoming Encounters Date Type Department Care Team (Late st Contact Info) Description 05/05/2025 4:20 PM ALPINE GUIDE Appointment [facility] Family Medicine Ronda Alcaraz [address] [address] [place] [address] [facility] [address] [place] [address] documented as of this encounter Visit Diagnoses Not on filedocumented in this encounter Additional Health Concerns Infection Onset Date Last Indicated Resolved Time R/O COVID-19 12/06/2019 12/06/2019 12/08/2019 4:01 AM CDT R/O COVID-19 05/29/2020 05/29/2020 05/30/2020 1:3 4 AM ALPINE GUIDE COVID-19 05/29/2020 05/29/2020 06/28/2020 1:17 AM ALPINE GUIDE documented as of this encounter Care Teams Retail Inventory Control Clerk Relationship Specialty [place] [address] [address] PCP - General Family Practice 05/07/17 documented as of this encounter
--- OUTSIDE RECORDS SUMMARY | 2024-10-18 15:22 | XMS_ITS | Encounter Summary ---
Author Organization [facility] Address [address] [place] [address] Care Team Providers Care Lining Marker Name Role Phone Rhonda Oro MD Primary Care Provider [phone] Encounter Details Date Type Department Care Team (Latest Contact Info) Description 01/03/2006 Inpatient Historical HIS [facility] Jorge Yang MD [address] [facility] [address] [place] [address] Teetee Crowell, [address] [facility] [address] [place] [address] First-Degree Perineal Laceration, with Delivery (Primary Dx) Social History Tobacco Use Types Packs/Day Years Used Date Smoking Tobacco: Never Assessed Comments Unknown Sex and Gender Information Value Date Recorded Sex Assigned at Not on file Legal Sex Female 4:40 AM ACCREDITATION SPECIALIST Gender Identity Not on file Sexual Orientation Not on file documented as of this encounter Plan of Treatment Upcoming Encounters Date Type Department Care Team (Late st Contact Info) Description 05/05/2025 4:20 PM ACCREDITATION SPECIALIST Appointment [facility] Medicine Ronda Alcaraz [address] [facility] [address] [place] [address] [place] [address] [address] documented as of this encounter Visit Diagnoses Diagnosis First-degree perineal laceration, with delivery- Primary documented in this encounter Additional Health Concerns Infection Onset Date Last Indicated Resolved Time R/O COVID-19 12/06/2019 12/06/2019 12/08/2019 4:01 AM CDT R/O COVID-19 05/29/2020 05/29/2020 05/30/2020 1:34 AM ACCREDITATION SPECIALIST COVID-19 05/29/2020 05/29/2020 06/28/2020 1:17 AM ACCREDITATION SPECIALIST documented as of this encounter Care Teams Lining Marker Relationship Specialty [place] [address] [phone] PCP - General Family Practice 05/07/17 documented as of this encounter
--- OUTSIDE RECORDS SUMMARY | 2024-10-18 15:22 | XMS_ITS | Encounter Summary ---
Author Organization [facility] Address [address] [place] [address] Care Team Providers Care Enterprise Security Architect Name Role Phone Rhonda Oro MD Primary Care Provider [phone] Encounter Details Date Type Department Care Team (Late st Contact Info) Description 05/28/2008 Outpatient Historical [facility] EMERGENCY [facility] Er, Authorized P NO ADDRESS ON FILE Social History Tobacco Use Types Packs/Day Years Used Date Smoking Tobacco: Never Alcohol Use Standard Drinks/Week Comments No 0 (1 standard drink = 0.6 oz pur e alcohol) Comments No Sex and Gender Information Value Date Recorded Sex Assigned at Not on file Legal Sex Female 4:40 AM CONTROL SYSTEMS DESIGNER Gender Identity Not on file Sexual Orientation Not on file documented as of this encounter Plan of Treatment Upcoming Encounters Date Type Department Care Team (Late st Contact Info) Description 05/05/2025 4:20 PM CONTROL SYSTEMS DESIGNER Appointment [facility] Medicine Ronda Kieran [address] [facility] [address] [place] [address] [place] [address] [facility] [address] [place] [address] documented as of this encounter Visit Diagnoses Not on filedocumented in this encounter Additional Health Concerns Infection Onset Date Last Indicated Resolved Time R/O COVID-19 12/06/2019 12/06/2019 12/08/2019 4:01 AM CDT R/O COVID-19 05/29/2020 05/29/2020 05/30/2020 1:34 AM CONTROL SYSTEMS DESIGNER COVID-19 05/29/2020 05/29/2020 06/28/2020 1:17 AM CONTROL SYSTEMS DESIGNER documented as of this encounter Care Teams Enterprise Security Architect Relationship Specialty [place] [address] [address] PCP - General Family Practice 05/07/17 documented as of this encounter
--- OUTSIDE RECORDS SUMMARY | 2024-10-18 15:22 | XMS_ITS | Encounter Summary ---
Author Organization [facility] Address [address] [place] [address] Care Team Providers Care Anesthesiologist Name Role Phone Rhonda Oro MD Primary Care Provider [phone] Encounter Details Date Type Department Care Team (Late st Contact Info) Description 06/19/2007 Orders Only [facility] Medicine [facility] [address] [facility] [address] [place] [address] Tamie Leo MD NO ADDRESS ON FILE Social History Tobacco Use Types Packs/Day Years Used Date Smoking Tobacco: Never Assessed Comments Unknown Sex and Gender Information Value Date Recorded Sex Assigned at Not on file Legal Sex Female 4:40 AM HOME RESTORATION SERVICE SUPERVISOR Gender Identity Not on file Sexual Orientation Not on file documented as of this encounter Progress Notes * Tamie Leo MD - 10/14/2007 7:22 PM CDT TIME:01:14 pm PATIENT`S HOME PHONE: PATIENT`S WORK PHONE: PATIENT`S INSURANCE: [employer] WHO TOOK THE CALL: Lorna Lorenzo L GENERAL INFORMATION PATIENT STATUS: Established Patient. LAST VISIT: [id number] PCP: saida. ALTERNATIVE PHONE NUMBER: [phone] WHO CALLED: Patient`s mother called.jewels CURRENT ALLERGY LIST: ERYTHROMYCIN PCN PHARMACY NUMBER: [phone] PROBLEMS: mom states pt has tried sudafed and benadryl, didnt seem to help much CONGESTION: Patient complains of chest congestion, complains of sinus congestion, complains of nasal congestion. The symptoms began approximately 2 weeks ago. COUGH:Patient complains of cough. The symptoms began approximately 1 week ago. FEVER: Patient complains of fever. The fever began days ago. low grade when she first got this cold HEADACHE: Patient complains of headache. The symptoms began days ago. RUNNY NOSE: Patient complains of runny nose. The runny nose symptoms began approximately 1 week ago. SORE THROAT: Patient complains of sore throat. mainly in the begining SECTION 1: DOCTOR`S RESPONSE: travon 06/19/07 at 01:44 pm MEDICATIONS: Call in to Pharmacy ZITHROMAX ORAL TABLET 250 MG TABLETS, 2 tabs first day, then 1 QD X4days, 6 Dispensed, status: NEW PRESCRIPTION, 06/19/2007. 06/19/07 at 3:40pm Pts mother calling to find out if medication was prescribed. Attmepted to call into pharmacy, # was busy. will try again later. Eyad FINAL ACTION: vida 06/19/07 at 04:04 pm Called pharmacy at 06/19/07 at 04:04 pm. ADDITIONAL COMMENTS: Spoke with pt's mom..jayme Electronically Signed by: Jayme Cole on Tuesday, June 19, 2007 documented in this encounter Plan of Treatment Upcoming Encounters Date Type Department Care Team (Late st Contact Info) Description 05/05/2025 4:20 PM HOME RESTORATION SERVICE SUPERVISOR Appointment [facility] Family Medicine Ronda Alcaraz [address] [address] [place] [address] [address] documented as of this encounter Visit Diagnoses Not on filedocumented in this encounter Additional Health Concerns Infection Onset Date Last Indicated Resolved Time R/O COVID-19 12/06/2019 12/06/2019 12/08/2019 4:01 AM CDT R/O COVID-19 05/29/2020 05/29/2020 05/30/2020 1:34 AM HOME RESTORATION SERVICE SUPERVISOR COVID-19 05/29/2020 05/29/2020 06/28/2020 1:17 AM HOME RESTORATION SERVICE SUPERVISOR documented as of this encounter Care Teams Anesthesiologist Relationship Specialty [place] [address] [facility] [address] [place] [phone] PCP - General Family Practice 05/07/17 documented as of this encounter
--- OUTSIDE RECORDS SUMMARY | 2024-10-18 15:22 | XMS_ITS | Encounter Summary ---
Author Organization [facility] Address [address] [place] [address] Care Team Providers Care Manufacturing Teacher Name Role Phone Rhonda Oro MD Primary Care Provider [phone] Encounter Details Date Type Department Care Team (Late st Contact Info) Description 02/06/2007 Outpatient Historical [facility] Medicine Ronda Kieran [address] [facility] [address] [place] [address] Tamie Leo MD NO ADDRESS ON FILE Social History Tobacco Use Types Packs/Day Years Used Date Smoking Tobacco: Never Assessed Comments Unknown Sex and Gender Information Value Date Recorded Sex Assigned at Not on file Legal Sex Female 4:40 AM CYTOPATHOLOGIST Gender Identity Not on file Sexual Orientation Not on file documented as of this encounter Plan of Treatment Upcoming Encounters Date Type Department Care Team (Late st Contact Info) Description 05/05/2025 4:[address] [facility] [place] Kieran [address] [facility] [address] [place] [address] [place] [address] [facility] [facility] [address] [place] [address] documented as of this encounter Visit Diagnoses Not on filedocumented in this encounter Additional Health Concerns Infection Onset Date Last Indicated Resolved Time R/O COVID-19 12/06/2019 12/06/2019 12/08/2019 4:01 AM CDT R/O COVID-19 05/29/2020 05/29/2020 05/30/2020 1:34 AM CYTOPATHOLOGIST COVID-19 05/29/2020 05/29/2020 06/28/2020 1:17 AM CYTOPATHOLOGIST documented as of this encounter Care Teams Manufacturing Teacher Relationship Specialty [place] [address] [address] PCP - General Family Practice 05/07/17 documented as of this encounter
--- OUTSIDE RECORDS SUMMARY | 2024-10-18 15:22 | XMS_ITS | Encounter Summary ---
Author Organization [facility] Address [address] [place] [address] Care Team Providers Care Drawing Kiln Operator Name Role Phone Rhonda Oro MD Primary Care Provider [phone] Encounter Details Date Type Department Care Team (Late st Contact Info) Description 08/02/[address] [facility] Medicine Ronda Kieran [address] [facility] [address] [place] [address] Tamie Leo MD NO ADDRESS ON FILE Social History Tobacco Use Types Packs/Day Years Used Date Smoking Tobacco: Never Assessed Comments Unknown Sex and Gender Information Value Date Recorded Sex Assigned at Not on file Legal Sex Female 4:40 AM PUBLIC ADMINISTRATION PROFESSOR Gender Identity Not on file Sexual Orientation Not on file documented as of this encounter Plan of Treatment Upcoming Encounters Date Type Department Care Team (Late st Contact Info) Description 05/05/2025 4:20 PM PUBLIC ADMINISTRATION PROFESSOR Appointment [facility] [place] Kieran [address] [facility] [address] [place] [address] [place] [address] [facility] [address] [place] [address] documented as of this encounter Visit Diagnoses Not on filedocumented in this encounter Additional Health Concerns Infection Onset Date Last Indicated Resolved Time R/O COVID-19 12/06/2019 12/06/2019 12/08/2019 4:01 AM CDT R/O COVID-19 05/29/2020 05/29/2020 05/30/2020 1:34 AM PUBLIC ADMINISTRATION PROFESSOR COVID-19 05/29/2020 05/29/2020 06/28/2020 1:17 AM PUBLIC ADMINISTRATION PROFESSOR documented as of this encounter Care Teams Drawing Kiln Operator Relationship Specialty [place] [address] [address] PCP - General Family Practice 05/07/17 documented as of this encounter
--- OUTSIDE RECORDS SUMMARY | 2024-10-18 15:22 | XMS_ITS | Encounter Summary ---
Author Organization [facility] Address [address] [place] [address] Care Team Providers Care Knock Out Hand Name Role Phone Rhonda Oro MD Primary Care Provider [phone] Encounter Details Date Type Department Care Team (Latest Contact Info) Description 12/22/2001 Outpatient Historical HIS [facility] Tamie Alexander MD NO ADDRESS ON FILE HYPOTHYROIDISM NOS (Primary Dx) Social History Tobacco Use Types Packs/Day Years Used Date Smoking Tobacco: Never Assessed Comments Unknown Sex and Gender Information Value Date Recorded Sex Assigned at Not on file Legal Sex Female 4:40 AM SPECIAL ORDER JEWELER Gender Identity Not on file Sexual Orientation Not on file documented as of this encounter Plan of Treatment Upcoming Encounters Date Type Department Care Team (Late st Contact Info) Description 05/05/2025 4:20 PM SPECIAL ORDER JEWELER Appointment [facility] Family Medicine Ronda Alcaraz [address] [facility] [address] [place] [address] [place] [address] [facility] [address] [place] [address] documented as of this encounter Visit Diagnoses Diagnosis Unspecified hypothyroidism- Primary documented in this encounter Additional Health Concerns Infection Onset Date Last Indicated Resolved Time R/O COVID-19 12/06/2019 12/06/2019 12/08/2019 4:01 AM CDT R/O COVID-19 05/29/2020 05/29/2020 05/30/2020 1:34 AM SPECIAL ORDER JEWELER COVID-19 05/29/2020 05/29/2020 06/28/2020 1:17 AM SPECIAL ORDER JEWELER documented as of this encounter Care Teams Knock Out Hand Relationship Specialty [place] [address] [address] PCP - General Family Practice 05/07/17 documented as of this encounter
--- OUTSIDE RECORDS SUMMARY | 2024-10-18 15:23 | XMS_ITS | Encounter Summary ---
Author Organization [facility] Address [address] [place] [address] Care Team Providers Care Clerk General Office Name Role Phone Rhonda Oro MD Primary Care Provider [phone] Encounter Details Date Type Department Care Team (Late st Contact Info) Description 06/29/2001 Outpatient Historical HIS [facility] DEPT OF FAMILY MEDICINE Tamie Leo MD NO ADDRESS ON FILE Social History Tobacco Use Types Packs/Day Years Used Date Smoking Tobacco: Never Assessed Comments Unknown Sex and Gender Information Value Date Recorded Sex Assigned at Not on file Legal Sex Female 4:40 AM GLAZIER ARTIST Gender Identity Not on file Sexual Orientation Not on file documented as of this encounter Plan of Treatment Upcoming Encounters Date Type Department Care Team (Late st Contact Info) Description 05/05/2025 4:20 PM GLAZIER ARTIST Appointment [facility] Family Medicine Ronda Alcaraz [address] [address] [place] [address] [facility] [address] [place] [address] documented as of this encounter Visit Diagnoses Not on filedocumented in this encounter Additional Health Concerns Infection Onset Date Last Indicated Resolved Time R/O COVID-19 12/06/2019 12/06/2019 12/08/2019 4:01 AM CDT R/O COVID-19 05/29/2020 05/29/2020 05/30/2020 1:3 4 AM GLAZIER ARTIST COVID-19 05/29/2020 05/29/2020 06/28/2020 1:17 AM GLAZIER ARTIST documented as of this encounter Care Teams Clerk General Office Relationship Specialty [place] [address] [address] PCP - General Family Practice 05/07/17 documented as of this encounter
--- OUTSIDE RECORDS SUMMARY | 2024-10-18 15:23 | XMS_ITS | Encounter Summary ---
Author Organization [facility] Address [address] [place] [address] Care Team Providers Care Recreation Worker Name Role Phone Rhonda Oro MD Primary Care Provider [phone] Encounter Details Date Type Department Care Team (Late st Contact Info) Description 09/04/2001 Outpatient Historical [facility] DEPT OF FAMILY MEDICINE Darlin Ramon MD [address] [place] [address] Social History Tobacco Use Types Packs/Day Years Used Date Smoking Tobacco: Never Assessed Comments Unknown Sex and Gender Information Value Date Recorded Sex Assigned at Not on file Legal Sex Female 4:40 AM SKIING INSTRUCTOR Gender Identity Not on file Sexual Orientation Not on file documented as of this encounter Plan of Treatment Upcoming Encounters Date Type Department Care Team (Late st Contact Info) Description 05/05/2025 4:20 PM SKIING INSTRUCTOR Appointment [facility] Family Medicine Ronda Alcaraz [address] [facility] [address] [place] [address] [place] [address] [facility] [address] [place] [address] documented as of this encounter Visit Diagnoses Not on filedocumented in this encounter Additional Health Concerns Infection Onset Date Last Indicated Resolved Time R/O COVID-19 12/06/2019 12/06/2019 12/08/2019 4:01 AM CDT R/O COVID-19 05/29/2020 05/29/2020 05/30/2020 1:34 AM SKIING INSTRUCTOR COVID-19 05/29/2020 05/29/2020 06/28/2020 1:17 AM SKIING INSTRUCTOR documented as of this encounter Care Teams Recreation Worker Relationship Specialty [place] [address] [address] PCP - General Family Practice 05/07/17 documented as of this encounter
--- OUTSIDE RECORDS SUMMARY | 2024-10-18 15:23 | XMS_ITS | Encounter Summary ---
Author Organization [facility] Address [address] [place] [address] Care Team Providers Care Transit Operations Supervisor Name Role Phone Rhonda Oro MD Primary Care Provider [phone] Encounter Details Date Type Department Care Team (Late st Contact Info) Description 09/16/2001 Outpatient Historical [facility] DEPT [place] [address] [place] [address] Social History Tobacco Use Types Packs/Day Years Used Date Smoking Tobacco: Never Assessed Comments Unknown Sex and Gender Information Value Date Recorded Sex Assigned at Not on file Legal Sex Female 4:40 AM CUFF SETTER LOCKSTITCH Gender Identity Not on file Sexual Orientation Not on file documented as of this encounter Plan of Treatment Upcoming Encounters Date Type Department Care Team (Late st Contact Info) Description 05/05/2025 4:20 PM CUFF SETTER LOCKSTITCH Appointment [facility] Medicine Ronda Kieran [address] [address] [place] [address] [facility] [address] [place] [address] documented as of this encounter Visit Diagnoses Not on filedocumented in this encounter Additional Health Concerns Infection Onset Date Last Indicated Resolved Time R/O COVID-19 12/06/2019 12/06/2019 12/08/2019 4:01 AM CDT R/O COVID-19 05/29/2020 05/29/2020 05/30/2020 1:34 AM CUFF SETTER LOCKSTITCH COVID-19 05/29/2020 05/29/2020 06/28/2020 1:17 AM CUFF SETTER LOCKSTITCH documented as of this encounter Care Teams Transit Operations Supervisor Relationship Specialty [place] [address] [address] PCP - General Family Practice 05/07/17 documented as of this encounter
--- OUTSIDE RECORDS SUMMARY | 2024-10-18 15:23 | XMS_ITS | Clinical Summary ---
Author Organization [facility] Address [address] [place] [address] Care Team Providers Care Tooth Grinder Name Role Phone Rhonda Oro MD Primary Care Provider [phone] Allergies Active Allergy Reactions Criticality Noted Date Comments Penicillins 11/25/2003 Medications rizatriptan (Maxalt) 10 mg Tablet Take 10 mg PO PRN migraine. may repeat in 2 hours; max dose 30mg in 24 hours 12 Tablet 1 4 Active levothyroxine 25 mcg tabletIndicatio ns:Hypothyroidi sm, unspecified type Take 1 tablet by mouth once daily 90 Tablet 3 5 Active Isibloom 0.15-0.03 mg TabletIndicatio ns:Encounter for control pills maintenance TAKE 1 TABLET DAILY, ACTIVE PILLS ONLY 84 Tablet 3 5 Active Isibloom 0.15-0.03 mg TabletIndicatio ns:Encounter for control pills maintenance TAKE 1 TABLET DAILY, ACTIVE PILLS ONLY 84 Tablet 3 4 10/06/19 25 Discontinued Active Problems Problem Noted Date Diagnosed Date Other specified hypothyroidism 09/15/2017 Generalized anxiety disorder 05/07/2017 Dysplasia of cervix, low grade (MILAGRO 1) 7 Overview (04/07/2017): On Colpo 2014 Cervical high risk HPV (human papillomavirus) te st positive 04/07/2017 Overview (04/07/2017): On pap 07/2016 Migraine 11/20/2010 Underweight 11/20/2010 Deformity, foot 11/20/2010 Anxiety state 02/06/2007 Resolved Problems Problem Noted Date Diagnosed Date Resolved Date Vaginitis and vulvovaginitis, unspecified 02/27/2007 06/03/2008 Headache(784.0) 02/06/2007 04/07/2017 Abdominal pain, unspecified site 02/06/2007 06/03/2008 Other specified viral warts 12/22/2006 11/20/2010 Cellulitis and abscess of leg, except foot 06/06/2006 06/03/2008 Injury, other and unspecifie d, knee, leg, ankle, and foot 09/03/2005 06/03/2008 Acute pharyngitis 01/23/2004 06/03/2008 Routine or child health check 01/23/2004 06/03/2008 Other acne 11/25/2003 11/20/2010 Premenstrual tension syndromes 11/25/2003 11/20/2010 Encounters Date Type Department Care Team Description 10/14/[address] [facility] Medicine Ronda Kieran [address] [place] [address] Rhonda Oro MD Paperwork 10/03/[address] [facility] Medicine [place] Kieran [address] [address] [place] [address] Rhonda Oro MD Encounter for control pills maintenance 09/14/2024 External Device Data STL ABSTRACTION Provider, Abstract 08/18/2024 External Device Data [place] ABSTRACTION Provider, Abstract 08/18/2024 External Device Data [place] ABSTRACTION Provider, Abstract 08/07/2024 External Device Data [place] ABSTRACTION Provider, Abstract 08/06/2024 External Device Data [place] ABSTRACTION Provider, Abstract 08/03/2024 External Device Data [place] ABSTRACTION Provider, Abstract 07/21/2024 External Device Data [place] ABSTRACTION Provider, Abstract from Last 3 Months Immunizations Immunization Administration Dates Next Due (ADACEL/BOOSTRIX)(10 YR UP) TDAP VACCINE, 0.5ML, IM 11/19/2010 (TDVAX)(7 YRS UP) TETANUS AN D DIPHTHERIA TOXOIDS, ADSORBED (2 LF OF TETANUS TOXOID AND 2 LF OF DIPHTHERIA TOXOID), 0.5ML (PF), IM 03/13/2004 INFLUENZA VACCINE QUADRIVALE NT 3 YR UP PF IM 02/27/2016,03/01/2014 INFLUENZA VACCINE TRIVALENT SPLIT VIRUS, (6 MOS UP), 0.5ML (PF), IM 03/15/2024 Influenza Seasonal Unspecifi ed Formulation IM 03/19/2023,03/06/2020,03/06/2020,2018,03/10/2018,03/19/2017,02/27/2016,1 Influenza Vaccine Quad Split 3+ Yrs Im 03/16/2015 Family History Medical History Relation Name Comments Healthy Brother 1 Bobby Healthy Brother 2 Bryan Hypertension Father Cancer Maternal Grandfather Bile [place] ct Heart Disease Maternal Grandmother High Cholesterol Maternal Grandmother Osteoporosis Mother Thyroid Disease Mother Breast Cancer Other maternal aunt at age 50, pat. aunt 40y Cancer Paternal Grandfather Heart Disease Paternal Grandmother a t age 59y of [place] Healthy Sister Lisa Healthy Son Marlo Colon Cancer Neg Hx Ovarian Cancer Neg Hx Relation Name Status Comments Brother 1 Bobby Alive overweight Brother 2 Bryan Alive well Father Alive hi chol Maternal Grandfather Maternal Grandmother Alive Mother Alive hypothyroidism, hi chol Other Paternal Grandfather Paternal Grandmother Sister Lisa Alive well Son Marlo Alive well Social History Tobacco Use Types Packs/Day Years Used Date Smoking Tobacco: Never Smokeless Tobacco: Never Tobacco Cessation:Counseling Given: Not Answered Alcohol Use Standard Drinks/Week Comments Yes 0 (1 standard drink = 0.6 oz pur e alcohol) rare Comments No Sex and Gender Information Value Date Recorded Sex Assigned at Not on file Legal Sex Female 4:40 AM VASCULAR SPECIALISTS Gender Identity Not on file Sexual Orientation Not on file Occupation Industry Job Start Date Job End Date Not on file Not on file Not on file Not on file Last Filed Vital Signs Vital Sign Reading Time Taken Comments Blood Pressure 116/84 05/14/2024 11:33 AM VASCULAR SPECIALISTS Pulse 70 05/14/2024 11:33 AM VASCULAR SPECIALISTS Temperature 36.8 C (98.2 F) 05/14/2024 11:33 AM VASCULAR SPECIALISTS Respiratory Rate 18 01/03/2019 1:55 PM CDT Oxygen Saturation 97% 05/14/2024 11:33 AM VASCULAR SPECIALISTS Inhaled Oxygen Concentration - - Weight 59.9 kg (132 lb) 05/14/2024 11:33 AM VASCULAR SPECIALISTS Height 172.1 cm (5' 7.75 ) 05/14/2024 11:33 AM Abdirizak ZAPATA Body Mass Index 20.22 05/14/2024 11:33 AM VASCULAR SPECIALISTS Plan of Treatment Upcoming Encounters Date Type Department Care Team (Late st Contact Info) Description 05/05/2025 4:20 PM VASCULAR SPECIALISTS Appointment [facility] Ronda Alcaraz [address] [address] [employer] [facility] [address] [place] [address] [place] [address] [address] [facility] [address] [place] [address] Health Maintenance Due Date Last Done Comments HEPATITIS B VACCINES (1 of 3 - 19+ 3-dose series) 11/16/2006 DTAP/TDAP/TD VACCINES (3 - Td or Tdap) 11/19/2020 11/19/2010, 03/13/2004 PAP SMEAR 05/14/2027 05/14/2024, 02/01, 01/12/2020, Additional history exists CERVICAL CANCER SCREENING 05/14/2029 HPV/Cotest (21-29) 05/14/2029 05/14/2024, 0 02/27/2021, 01/12/2020, Additional history exists HPV/Cotest (30-65) 05/14/2029 05/14/2024, 0 02/27/2021, 01/12/2020, Additional history exists INFLUENZA VACCINE Completed 03/15/2024, , 03/06/2020, Additional history exists HPV VACCINES Aged Out No longer eligi ble based on patient's age to complete this topic Procedures Procedure Name Priority Date/Time Associated Diagnosis Comments CERV/VAG CYTO AGE BASED SCREEN PAP W CT/NG Routine 05/14/2024 12:41 PM VASCULAR SPECIALISTS Cervical cancer screening from Last 3 Months or Most Recently Relevant to Health Maintenance Results * CERV/VAG CYTO AGE BASED SCREEN PAP W CT/NG (05/14/2024 12:41 PM VASCULAR SPECIALISTS) COMMENT (PAP): [facility] [place] Comment: This order for age-based cervical cancer and STI screening follows ACOG guidelines(PB 168, 140, IGA971). See individual assays for performing site location. CLINICAL INFORMATION [facility] [place] Comment:None given LAST MENSTRUAL PERIOD [facility] [place] Comment:04/28/2024 PREV PAP: [facility] [place] Comment:NONE GIVEN PREV BX: [facility] [place] Comment:NONE GIVEN SOURCE [facility] [place] Comment:Endocervix ADEQUACY: [facility] [place] Comment: Satisfactory for evaluation. Endocervical/transformation zone component present. PAP INTERP [facility] [place] Comment: Cytology Results: Negative for intraepithelial lesion or malignancy. COMMENT (PAP TEST) [facility] [place] Comment: This Pap test has been evaluated with computer assisted technology. SECURITY COMPLIANCE SPECIALIST: [facility] [place] Comment: LM, CT(ASCP) CT screening location: [place] [address] [place] [address] EXPLANATORY NOTE [facility] [place] Comment: EXPLANATORY NOTE: The Pap is a screening test for cervical cancer. It is not a diagnostic test and is subject to false negative and false positive results. It is most reliable when a satisfactory sample, regularly obtained, is submitted with relevant clinical findings and history, and when the Pap result is evaluated along with historic and current clinical information. HPV E6/E7 Not Detected Not Detected [facility] [place] Comment: Methodology: Brace Maker-Mediated Amplification This assay detects E6/E7 viral messenger RNA (mRNA) from 14 high-risk HPV types (16,18,31,33,35,39,45,51,52,56,58,59,66,68). Cervical sources are required for HPV testing. If a vaginal source from a patient who has had a total hysterectomy with removal of cervix was submitted, please contact the testing laboratory for alternative testing options. For additional information, please refer to http://education.Divas Diamond.Wisair/faq/BJD839v5 (This link if provided for information/ educational purposes only.) CHLAMYDIA TRACHOMATIS RNA, TMA, UROGENITAL NOT DETECTED NOT DETECTED [facility] [place] NEISSERIA GONORRHOEAE RNA, TMA, UROGENITAL NOT DETECTED NOT DETECTED [facility] [place] COMMENT INFECTIOUS DISEASE [facility] [place] Comment: The analytical performance characteristics of this assay, when used to test SurePath(TM) specimens have been determined by [facility]. The modifications have not been cleared or approved by the FDA. This assay has been validated pursuant to the CLIA regulations and is used for clinical purposes. For additional information, please refer to https://education.Lumicity/faq/OFI663 (This link is being provided for information/ educational purposes only.) Test Performed at: [facility] [address] [facility] [place] [address] Saji CAVANAUGH Genital SWAB OF ENDOCERVIX / Unknown 05/14/2024 12:41 PM [facility] 05/15/2024 7:36 AM [facility]ISTS us Rhonda Oro MD PATHOLOGY/CYTOLOGY ORDERABLE S Final Result [facility] [phone] [facility] [address] [facility] [place] [address] from Last 3 Months or Most Recently Relevant to Health Maintenance Insurance RX MEDIMPACT Member Subscriber Plan / Payer (Ef fective for All Dates) Name:Vinod Fraser Relation to Subscriber:Self Name:Vinod Fraser Payer ID:Not on file Group ID:[id number] Type:RX Commercial Address: [place] RX MEDIMPACT Member Subscriber Plan / Payer (Ef fective for All Dates) Name:Vinod Fraser Relation to Subscriber:Self Name:Vinod Fraser Payer ID:Not on file Group ID:[id number] Type:RX Commercial Address: [place] Jhon RIVERAMarcin TADEO [address] CHOICE [address] [facility] CORE [address] Care Teams Tooth Grinder Relationship Specialty [place] [address] [phone] PCP - General Family Practice 05/07/17
--- OUTSIDE RECORDS SUMMARY | 2024-10-18 15:23 | XMS_ITS | Encounter Summary ---
Author Organization [facility] Address [address] [place] [address] Care Team Providers Care Sales Closer Name Role Phone Rhonda Oro MD Primary Care Provider [phone] Encounter Details Date Type Department Care Team (Late Contact Info) Description 10/29/2001 Outpatient [facility] Family Therapy [address] [place] [address] Lorenza Brody Social History Tobacco Use Types Packs/Day Years Used Date Smoking Tobacco: Never Assessed Comments Unknown Sex and Gender Information Value Date Recorded Sex Assigned at Not on file Legal Sex Female 4:40 AM PATTERN RULER Gender Identity Not on file Sexual Orientation Not on file documented as of this encounter Plan of Treatment Upcoming Encounters Date Type Department Care Team (Late Contact Info) Description 05/05/2025 4:20 PM PATTERN RULER Appointment [facility] Medicine Ronda Kieran [address] [facility] [address] [place] [address] [place] [address] [facility] [address] [place] [address] documented as of this encounter Visit Diagnoses Not on filedocumented in this encounter Additional Health Concerns Infection Onset Date Last Indicated Resolved Time R/O COVID-19 12/06/2019 12/06/2019 12/08/2019 4:01 AM CDT R/O COVID-19 05/29/2020 05/29/2020 05/30/2020 1:34 AM PATTERN RULER COVID-19 05/29/2020 05/29/2020 06/28/2020 1:17 AM PATTERN RULER documented as of this encounter Care Teams Sales Closer Relationship Specialty [place] [address] [address] PCP - General Family Practice 05/07/17 documented as of this encounter
--- OUTSIDE RECORDS SUMMARY | 2024-10-18 15:23 | XMS_ITS | Encounter Summary ---
Author Organization [facility] Address [address] [place] [address] Care Team Providers Care Tombstone Erector Name Role Phone Rhonda Oro MD Primary Care Provider [phone] Encounter Details Date Type Department Care Team (Late Contact Info) Description 10/16/2001 Outpatient Historical [facility] Child and Adolescent Psychiatry [facility] [address] [place] [address] Rajeev Nicolas, [facility] NO ADDRESS ON FILE Social History Tobacco Use Types Packs/Day Years Used Date Smoking Tobacco: Never Assessed Comments Unknown Sex and Gender Information Value Date Recorded Sex Assigned at Not on file Legal Sex Female 4:40 AM CAGER OPERATOR Gender Identity Not on file Sexual Orientation Not on file documented as of this encounter Plan of Treatment Upcoming Encounters Date Type Department Care Team (Late Contact Info) Description 05/05/2025 4:20 PM CAGER OPERATOR Appointment [facility] Family Medicine Ronda Alcaraz [address] [facility] [address] [place] [address] [place] [address] [employer] [facility] [address] [place] [address] documented as of this encounter Visit Diagnoses Not on filedocumented in this encounter Additional Health Concerns Infection Onset Date Last Indicated Resolved Time R/O COVID-19 12/06/2019 12/06/2019 12/08/2019 4:01 AM CDT R/O COVID-19 05/29/2020 05/29/2020 05/30/2020 1:34 AM CAGER OPERATOR COVID-19 05/29/2020 05/29/202006/2806/28/2020 1:17 AM CAGER OPERATOR documented as of this encounter Care Teams Tombstone Erector Relationship Specialty [place] [address] [phone] PCP - General Family Practice 05/07/17 documented as of this encounter
--- OUTSIDE RECORDS SUMMARY | 2024-10-18 15:23 | XMS_ITS | Encounter Summary ---
Author Organization [facility] Address [address] [place] [address] Care Team Providers Care Veterinary Anatomist Name Role Phone Rhonda Oro MD Primary Care Provider [phone] Encounter Details Date Type Department Care Team (Late Contact Info) Description 06/06/2006 Outpatient Historical [facility] [place] Kieran [address] [address] [facility] [address] [place] [address] [place] [address] [employer] [place] [address] Social History Tobacco Use Types Packs/Day Years Used Date Smoking Tobacco: Never Assessed Comments Unknown Sex and Gender Information Value Date Recorded Sex Assigned at Not on file Legal Sex Female 4:40 AM BELT BRANDER Gender Identity Not on file Sexual Orientation Not on file documented as of this encounter Last Filed Vital Signs Vital Sign Reading Time Taken Comments Blood Pressure - - Pulse 80 06/06/2006 10:20 AM BELT BRANDER Temperature 36.7 C (98.1 F) 06/06/2006 10:20 AM BELT BRANDER Respiratory Rate - - Oxygen Saturation - - Inhaled Oxygen Concentration - - Weight 50.3 kg (111 lb) 06/06/2006 10:20 AM BELT BRANDER Height - - Body Mass Index - - documented in this encounter Plan of Treatment Upcoming Encounters Date Type Department Care Team (Late Contact Info) Description 05/05/2025 4:20 PM BELT BRANDER Appointment [facility] Kieran [address] [employer] [address] [place] [address] [place] [address] [address] documented as of this encounter Visit Diagnoses Not on filedocumented in this encounter Additional Health Concerns Infection Onset Date Last Indicated Resolved Time R/O COVID-19 12/06/2019 12/06/2019 12/08/2019 4:01 AM CDT R/O COVID-19 05/29/2020 05/29/2020 05/30/2020 1:34 AM BELT BRANDER COVID-19 05/29/2020 05/29/2020 06/28/2020 1:17 AM BELT BRANDER documented as of this encounter Care Teams Veterinary Anatomist Relationship Specialty [place] [address] [facility] [address] [place] [phone] PCP - General Family Practice 05/07/17 documented as of this encounter
--- OUTSIDE RECORDS SUMMARY | 2024-10-18 15:23 | XMS_ITS | Encounter Summary ---
Author Organization [facility] Address [address] [place] [address] Care Team Providers Care Lead Miner Blasting Name Role Phone Rhonda Oro MD Primary Care Provider [phone] Encounter Details Date Type Department Care Team (Late Contact Info) Description 10/02/2001 Outpatient Historical [facility] [address] [place] [address] Rajeev Nicolas, [facility] NO ADDRESS ON FILE Social History Tobacco Use Types Packs/Day Years Used Date Smoking Tobacco: Never Assessed Comments Unknown Sex and Gender Information Value Date Recorded Sex Assigned at Not on file Legal Sex Female 4:40 AM GROUNDMAN Gender Identity Not on file Sexual Orientation Not on file documented as of this encounter Plan of Treatment Upcoming Encounters Date Type Department Care Team (Late Contact Info) Description 05/05/2025 4:20 PM GROUNDMAN Appointment [facility] Family Medicine Ronda Alcaraz [address] [facility] [address] [place] [address] [place] [address] [employer] [facility] [address] [place] [address] documented as of this encounter Visit Diagnoses Not on filedocumented in this encounter Additional Health Concerns Infection Onset Date Last Indicated Resolved Time R/O COVID-19 12/06/2019 12/06/2019 12/08/2019 4:01 AM CDT R/O COVID-19 05/29/2020 05/29/2020 05/30/2020 1:34 AM GROUNDMAN COVID-19 05/29/2020 05/29/202006/2806/28/2020 1:17 AM GROUNDMAN documented as of this encounter Care Teams Lead Miner Blasting Relationship Specialty [place] [address] [phone] PCP - General Family Practice 05/07/17 documented as of this encounter
--- OUTSIDE RECORDS SUMMARY | 2024-10-18 15:23 | XMS_ITS | Encounter Summary ---
Author Organization [facility] Address [address] [place] [address] Care Team Providers Care Lumber Chain Offbearer Name Role Phone Rhonda Oro MD Primary Care Provider [phone] Encounter Details Date Type Department Care Team (Late Contact Info) Description 01/16/2007 Outpatient Historical [facility] Ronda Kieran [address] [employer] [facility] [address] [place] [address] Tamie Leo MD NO ADDRESS ON FILE Social History Tobacco Use Types Packs/Day Years Used Date Smoking Tobacco: Never Assessed Comments Unknown Sex and Gender Information Value Date Recorded Sex Assigned at Not on file Legal Sex Female 4:40 AM INSTRUCTIONAL TECHNOLOGY DIRECTOR Gender Identity Not on file Sexual Orientation Not on file documented as of this encounter Last Filed Vital Signs Vital Sign Reading Time Taken Comments Blood Pressure 100/70 01/16/2007 9:45 AM CDT Pulse 76 01/16/2007 9:45 AM CDT Temperature - - Respiratory Rate - - Oxygen Saturation - - Inhaled Oxygen Concentration - - Weight 49 kg (108 lb) 01/16/2007 9:45 AM CDT Height - - Body Mass Index - - documented in this encounter Plan of Treatment Upcoming Encounters Date Type Department Care Team (Late Contact Info) Description 05/05/2025 4:20 PM INSTRUCTIONAL TECHNOLOGY DIRECTOR Appointment [facility] Medicine Ronda Kieran [id number] [employer] [address] [place] [address] [place] [address] [employer] [facility] [address] [place] [address] documented as of this encounter Visit Diagnoses Not on filedocumented in this encounter Additional Health Concerns Infection Onset Date Last Indicated Resolved Time R/O COVID-19 12/06/2019 12/06/2019 12/08/2019 4:01 AM CDT R/O COVID-19 05/29/2020 05/29/2020 05/30/2020 1:34 AM INSTRUCTIONAL TECHNOLOGY DIRECTOR COVID-19 05/29/2020 05/29/2020 06/28/2020 1:17 AM INSTRUCTIONAL TECHNOLOGY DIRECTOR documented as of this encounter Care Teams Lumber Chain Offbearer Relationship Specialty [place] [address] [address] PCP - General Family Practice 05/07/17 documented as of this encounter
--- OUTSIDE RECORDS SUMMARY | 2024-10-18 15:23 | XMS_ITS | Encounter Summary ---
Author Organization [facility] Address [address] [place] [address] Care Team Providers Care Executive Administrator Name Role Phone Rhonda Oro MD Primary Care Provider [phone] Encounter Details Date Type Department Care Team (Latest Contact Info) Description 06/29/2001 Outpatient Historical [facility], [address] Tamie Leo MD NO ADDRESS ON FILE ACUTE PHARYNGITIS (Primary Dx) Social History Tobacco Use Types Packs/Day Years Used Date Smoking Tobacco: Never Assessed Comments Unknown Sex and Gender Information Value Date Recorded Sex Assigned at Not on file Legal Sex Female 4:40 AM HARDENING MACHINE OPERATOR HELPER Gender Identity Not on file Sexual Orientation Not on file documented as of this encounter Plan of Treatment Upcoming Encounters Date Type Department Care Team (Late st Contact Info) Description 05/05/2025 4:20 PM HARDENING MACHINE OPERATOR HELPER Appointment [facility] Medicine Ronda Alcaraz [address] [facility] [address] [place] [address] [place] [address] [facility] [address] [place] [address] documented as of this encounter Visit Diagnoses Diagnosis Acute pharyngitis- Primary documented in this encounter Additional Health Concerns Infection Onset Date Last Indicated Resolved Time R/O COVID-19 12/06/2019 12/06/2019 12/08/2019 4:01 AM CDT R/O COVID-19 05/29/2020 05/29/2020 05/30/2020 1:34 AM HARDENING MACHINE OPERATOR HELPER COVID-19 05/29/2020 05/29/2020 06/28/2020 1:17 AM HARDENING MACHINE OPERATOR HELPER documented as of this encounter Care Teams Executive Administrator Relationship Specialty [place] [address] [address] PCP - General Family Practice 05/07/17 documented as of this encounter
--- OUTSIDE RECORDS SUMMARY | 2024-10-18 15:23 | XMS_ITS | Encounter Summary ---
Author Organization [facility] Address [address] [place] [address] Care Team Providers Care Cna Per Diem Name Role Phone Rhonda Oro MD Primary Care Provider [phone] Encounter Details Date Type Department Care Team (Latest Contact Info) Description 09/04/2001 Outpatient Historical [facility] Tamie Alexander MD NO ADDRESS ON FILE OTHER MALAISE AND FATIGUE (Primary Dx) Social History Tobacco Use Types Packs/Day Years Used Date Smoking Tobacco: Never Assessed Comments Unknown Sex and Gender Information Value Date Recorded Sex Assigned at Not on file Legal Sex Female 4:40 AM INTAKE WORKER Gender Identity Not on file Sexual Orientation Not on file documented as of this encounter Plan of Treatment Upcoming Encounters Date Type Department Care Team (Late st Contact Info) Description 05/05/2025 4:20 PM INTAKE WORKER Appointment [facility] Medicine Ronda Alcaraz [address] [facility] [address] [place] [address] [place] [address] [facility] [address] [place] [address] documented as of this encounter Visit Diagnoses Diagnosis Other malaise and fatigue- Primary documented in this encounter Additional Health Concerns Infection Onset Date Last Indicated Resolved Time R/O COVID-19 12/06/2019 12/06/2019 12/08/2019 4:01 AM CDT R/O COVID-19 05/29/2020 05/29/2020 05/30/2020 1:34 AM INTAKE WORKER COVID-19 05/29/2020 05/29/2020 06/28/2020 1:17 AM INTAKE WORKER documented as of this encounter Care Teams Cna Per Diem Relationship Specialty [place] [address] [address] PCP - General Family Practice 05/07/17 documented as of this encounter
--- OUTSIDE RECORDS SUMMARY | 2024-10-18 15:23 | XMS_ITS | Encounter Summary ---
Author Organization [facility] Address [address] [place] [address] Care Team Providers Care Clinical Education Assistant Name Role Phone Rhonda Oro MD Primary Care Provider [phone] Encounter Details Date Type Department Care Team (Late Contact Info) Description 10/05/2001 Outpatient [facility] Family Therapy [address] [place] [address] Lorenza Brody Social History Tobacco Use Types Packs/Day Years Used Date Smoking Tobacco: Never Assessed Comments Unknown Sex and Gender Information Value Date Recorded Sex Assigned at Not on file Legal Sex Female 4:40 AM FREIGHT HUSTLER Gender Identity Not on file Sexual Orientation Not on file documented as of this encounter Plan of Treatment Upcoming Encounters Date Type Department Care Team (Late Contact Info) Description 05/05/2025 4:20 PM FREIGHT HUSTLER Appointment [facility] Medicine Ronda Kieran [address] [facility] [address] [place] [address] [place] [address] [facility] [address] [place] [address] documented as of this encounter Visit Diagnoses Not on filedocumented in this encounter Additional Health Concerns Infection Onset Date Last Indicated Resolved Time R/O COVID-19 12/06/2019 12/06/2019 12/08/2019 4:01 AM CDT R/O COVID-19 05/29/2020 05/29/2020 05/30/2020 1:34 AM FREIGHT HUSTLER COVID-19 05/29/2020 05/29/2020 06/28/2020 1:17 AM FREIGHT HUSTLER documented as of this encounter Care Teams Clinical Education Assistant Relationship Specialty [place] [address] [address] PCP - General Family Practice 05/07/17 documented as of this encounter
--- OUTSIDE RECORDS SUMMARY | 2024-10-18 15:23 | XMS_ITS | Continuity of Care Document ---
Author Organization [facility] Address [address] [place] [address] [address] [place] [address] Phone Care Team Providers Care Suspender Cutter Name Role Phone Delgado OD, Enmanuel Unavailable Unavailable Procedures Procedure Date Eye Exam Established Pt Advance Directives Directive Yes / No Effective Date File Name No Information Encounters Encounter Description Practice Location Reason(s) For Visit Diagnoses Date Provider Providers Copied on Encounter [facility], [address] [place] [address] [address], [place], [place], [id number], [place] tel:[phone] [facility] No Information [phone] Delgado OD Enmanuel. [address] [facility] [place] , [address], [place], [address], [place]. tel:[phone] Family History Family Member Type Diagnosis Age At Onset No Information Payers Payer name Insurance type Covered green party ID Authoriza tion(s) No Information Social History [...]
== END 2024-10-18 15:16 | disposition home or self-care (01) ==
LOC: ANHLAB 15:19
DX: E03.8 Other specified hypothyroidism (principal)
CPT/HCPCS: 36415; 84443